=== PATIENT | female | born 1960 | race African-American/Black ===

== ENCOUNTER 2016-10-16 22:25 | Observation (INO) | payer OTHER ==
[2016-10-16] MEDS ORDERED: NS 0.9% 1000 ML* 1,000 ML IV ONE (23:40)
[2016-10-17] LABS: Hematocrit 35 % (35-47); Mean Corpuscular HGB Conc 32 g/dl (31-36); Mean Corpuscular Hemoglobin 24 pg (27-31); Mean Corpuscular Volume 76 fL (80-97); Mean Platelet Volume 10 um3 (7.4-10.4); Red Blood Count 4.54 10^6/ul (4.0-5.4); Red Cell Distribution Width 17 % (10.5-15); White Blood Count 5.6 10^3/ul (3.5-10.8)
[2016-10-17 00:12] LABS: Albumin 3.8 g/dL (3.2-5.2); BUN/Creatinine Ratio 17.8 (8-20); Calcium 9.1 mg/dL (8.6-10.3); EGFR African American 82.7 (>60); EGFR Non-African American 64.3 (>60); Globulin 3.7 g/dL (2-4); Potassium 3.8 mmol/L (3.5-5.0); Total Bilirubin 0.3 mg/dL (0.2-1.0); Total Protein 7.5 g/dL (6.4-8.9)
[2016-10-17 00:15] LABS: Troponin I 0.01 ng/mL (<0.04)
[2016-10-17] MEDS ORDERED: Aspirin TAB* 325 MG PO ONE (01:16)
[2016-10-17] MEDS ORDERED: Docusate CAP* 100 MG PO PRN (01:17)
[2016-10-17] MEDS ORDERED: Ondansetron INJ* 2 MG/ML VIAL IV PRN (01:17)
[2016-10-17] MEDS ORDERED: Al Hydrox/Mg Hydrox/Simet LIQ* 30 ML UDC PO PRN (01:17)
[2016-10-17] MEDS ORDERED: Senna TAB PO PRN (01:17)
[2016-10-17] MEDS ORDERED: Acetaminophen TAB* 325 MG PO PRN (01:17)
[2016-10-17] MEDS ORDERED: Dextrose 50% Syringe 50 ML* 25 GM/50 ML SYRINGE IV PUSH PRN (01:19)
[2016-10-17] MEDS ORDERED: Iodixanol* (CONTRAST) 320 MG/ML 100 ML SDV IV ONE (01:23)
--- NOTE | 2016-10-17 01:25 | ED ---
Miguel Cisneros Aidan, scribed for Mariama Fajardo MD on 10/17/16 at 0000 . Neurological HPI - HPI Summary HPI Summary: 56 y/o female presents to the ED with a complaint of acute, constant, moderate difficulty putting thoughts together and difficulty focusing. Symptoms began today and are still present. Though her NIH scale was fine everywhere else, she was unable to recall the current month (she is usually able to do so). Hx of HTN and diabetes, however, her sugars were normal today. Associated symptoms include having a cold and feeling weak for the past several days. She denies any CORTES, SOB, fever, vomiting, dysuria, slurred speech, or any recent falls. No Hx of NH or CVA, however, she has a FHx of CVA. - History of Current Complaint Chief Complaint: EDAltMentalStatus Stated Complaint: AMS Time Seen by Provider: 10/16/16 22:37 Hx Obtained From: Patient Hx Last Menstrual Period: unknown Onset/Duration: Sudden Onset, Started hours ago, Still Present Timing: Constant Onset Severity: Moderate Current Severity: Moderate Number of Seizures: 0 Neurological Deficit Location: Generalized - inability to put thoughts together Pain Intensity: 0 Pain Scale Used: 0-10 Numeric Character: Other: - inability to put thoughts together Syncope Timing: no syncope Episode Lasting: Hours - Pt is still symptomatic Number of Episodes: 0 - no reported syncope or seizure Frequency: Episodes x___ - constant inability to put thoughts together, Episodes Lasting ____ (in Mins/Days/Weeks/Years) - hours Aggravating: Unknown Alleviating: Unknown Associated Signs and Symptoms: Positive: Weakness. Negative: Negative - difficulty focusing, Pt had a cold - Allergy/Home Medications Allergies/Adverse Reactions: Allergies Allergy/AdvReac Type Severity Reaction Status Date / Time No Known Allergies Allergy Verified 02/23/13 14:17 PMH/Surg Hx/FS Hx/Imm Hx Endocrine/Hematology History: Reports: Hx Diabetes Cardiovascular History: Reports: Hx Hypertension Denies: Hx Pacemaker/ICD Sensory History: Reports: Hx Contacts or Glasses Denies: Hx Hearing Aid Opthamlomology History: Reports: Hx Contacts or Glasses Psychiatric History: Denies: Hx Panic Disorder - Cancer History Hx Chemotherapy: No Hx Radiation Therapy: No - Surgical History Surgery Procedure, Year, and Place: bi-lateral rentina lazer surgery 2000, patrizia- ectomy( uterine repaired 2002) Infectious Disease History: No Infectious Disease History: Denies: Traveled Outside the [place] in Last 30 Days - Family History Known Family History: Positive: Other - CVA - Social History Occupation: Employed Full-time Lives: Alone Alcohol Use: None Substance Use Type: Reports: None Smoking Status (MU): Never Smoked Tobacco Review of Systems Constitutional: Other - Pt had a cold Negative: Fever, Chills, Fatigue, Skin Diaphoresis Eyes: Negative ENT: Negative Cardiovascular: Negative Respiratory: Negative Gastrointestinal: Negative Genitourinary: Negative Musculoskeletal: Negative Skin: Negative Neurological: Other - difficulty focusing and difficulty putting thoughts together Positive: Weakness Psychological: Normal All Other Systems Reviewed And Are Negative: Yes Physical Exam - Summary Physical Exam Summary: General: Well appearing, no pain distress Skin: Warm, Skin Color Reflects Adequate Perfusion, Dry Eyes: EOMI, KATARZYNA ENT: Pharynx normal, TMs normal Neck: Supple, nontender Respiratory: CTA, breath sounds present, no rhonchi, no wheezes, no rales Cardiovascular: RRR, no murmur, no rub, no gallop Abdomen: Soft, nontender, Non-distended, no guarding, no rebound Bowel: Present Musculoskeletal: NONA, No edema Neuro: Sensory/motor intact, A&Ox3, CN intact 2-12 Psych: Affect/mood appropriate Triage Information Reviewed: Yes Vital Signs On Initial Exam: Initial Vitals Temp Pulse Resp BP Pulse Ox 98.5 F 71 24 142/75 95 10/16/16 22:31 10/16/16 22:31 10/16/16 22:31 10/16/16 22:31 10/16/16 22:31 Vital Signs Reviewed: Yes - [place] Coma Scale Coma Scale Total: 15 Diagnostics - Vital Signs Vital Signs Temp Pulse Resp BP Pulse Ox 10/16/16 23:30 65 21 127/74 95 10/16/16 23:11 64 16 122/70 10/16/16 23:00 64 20 122/70 94 10/16/16 22:45 98.3 F 66 16 123/68 95 10/16/16 22:44 70 22 123/68 95 10/16/16 22:37 15 10/16/16 22:36 129/70 10/16/16 22:31 98.5 F 71 24 142/75 95 - Laboratory Lab Results: Lab Results 10/16/16 10/16/16 10/16/16 Range/Units 22:40 22:40 22:40 WBC 5.6 (3.5-10.8) 10^3/ul RBC 4.54 (4.0-5.4) 10^6/ul Hgb 11.0 L (12.0-16.0) g/dl Hct 35 (35-47) % MCV 76 L (80-97) fL MCH 24 L (27-31) pg MCHC 32 (31-36) g/dl RDW 17 H (10.5-15) % Plt Count 189 (150-450) 10^3/ul MPV 10 (7.4-10.4) um3 Neut % (Auto) 52.0 (38-83) % Lymph % (Auto) 38.9 (25-47) % Hughes % (Auto) 7.3 (1-9) % Eos % (Auto) 1.5 (0-6) % Baso % (Auto) 0.3 (0-2) % Absolute Neuts (auto) 2.9 (1.5-7.7) 10^3/ul Absolute Lymphs (auto) 2.2 (1.0-4.8) 10^3/ul Absolute Monos (auto) 0.4 (0-0.8) 10^3/ul Absolute Eos (auto) 0.1 (0-0.6) 10^3/ul Absolute Basos (auto) 0 (0-0.2) 10^3/ul Absolute Nucleated RBC 0.03 10^3/ul Nucleated RBC % 0.5 INR (Anticoag Therapy) 1.00 (0.89-1.11) Sodium 138 (133-145) mmol/L Potassium 3.8 (3.5-5.0) mmol/L Chloride 101 (101-111) mmol/L Carbon Dioxide 30 (22-32) mmol/L Anion Gap 7 (2-11) mmol/L BUN 16 (6-24) mg/dL Creatinine 0.90 (0.51-0.95) mg/dL Est GFR ( Amer) 82.7 (>60) Est GFR (Non-Af Amer) 64.3 (>60) BUN/Creatinine Ratio 17.8 (8-20) Glucose 102 H (70-100) mg/dL Lactic Acid (0.5-2.0) mmol/L Calcium 9.1 (8.6-10.3) mg/dL Total Bilirubin 0.30 (0.2-1.0) mg/dL AST 19 (13-39) U/L ALT 14 (7-52) U/L Alkaline Phosphatase 80 (34-104) U/L Troponin I 0.01 (<0.04) ng/mL Total Protein 7.5 (6.4-8.9) g/dL Albumin 3.8 (3.2-5.2) g/dL Globulin 3.7 (2-4) g/dL Albumin/Globulin Ratio 1.0 (1-3) // Range/Units 22:40 WBC (3.5-10.8) 10^3/ul RBC (4.0-5.4) 10^6/ul Hgb (12.0-16.0) g/dl Hct (35-47) % MCV (80-97) fL MCH (27-31) pg MCHC (31-36) g/dl RDW (10.5-15) % Plt Count (150-450) 10^3/ul MPV (7.4-10.4) um3 Neut % (Auto) (38-83) % Lymph % (Auto) (25-47) % Hughes % (Auto) (1-9) % Eos % (Auto) (0-6) % Baso % (Auto) (0-2) % Absolute Neuts (auto) (1.5-7.7) 10^3/ul Absolute Lymphs (auto) (1.0-4.8) 10^3/ul Absolute Monos (auto) (0-0.8) 10^3/ul Absolute Eos (auto) (0-0.6) 10^3/ul Absolute Basos (auto) (0-0.2) 10^3/ul Absolute Nucleated RBC 10^3/ul Nucleated RBC % INR (Anticoag Therapy) (0.89-1.11) Sodium (133-145) mmol/L Potassium (3.5-5.0) mmol/L Chloride (101-111) mmol/L Carbon Dioxide (22-32) mmol/L Anion Gap (2-11) mmol/L BUN (6-24) mg/dL Creatinine (0.51-0.95) mg/dL Est GFR ( Amer) (>60) Est GFR (Non-Af Amer) (>60) BUN/Creatinine Ratio (8-20) Glucose (70-100) mg/dL Lactic Acid 1.0 (0.5-2.0) mmol/L Calcium (8.6-10.3) mg/dL Total Bilirubin (0.2-1.0) mg/dL AST (13-39) U/L ALT (7-52) U/L Alkaline Phosphatase (34-104) U/L Troponin I (<0.04) ng/mL Total Protein (6.4-8.9) g/dL Albumin (3.2-5.2) g/dL Globulin (2-4) g/dL Albumin/Globulin Ratio (1-3) Result Diagrams: 10/16/16 22:40 10/16/16 22:40 Lab Statement: Any lab studies that have been ordered have been reviewed, and results considered in the medical decision making process. - CT BRAIN CT CT Interpretation: No Acute Changes - IMPRESSION: No acute brain parenchymal abnormality. No hemorrhage, mass, or acute territorial infarct. Minimal chronic small vessel ischemic changes. No skull fracture. Mucoperiosteal thickening paranasal sinuses. Fluid right maxillary and right sphenoid sinuses. Visualized mastoid air cells. CT Interpretation Completed By: Radiologist - personal financial counselor - EKG EKG 0008 Cardiac Rate: NL - 67 BPM EKG Rhythm: Sinus Rhythm EKG Interpretation: NORMAL SINUS RHYTHM NIH Scale - NIH Scale Level of Consciousness: Alert/Keenly Responsive Ask Patient the Month and His/Her Age: [age] Correct/Not Aphasic Ask Pt to Open/Close Eyes and [place] Farmer/Release Non-Paretic Hand: Both Correctly Best Gaze (Only Horizontal Eye Movement): Normal Visual Field Testing: No Visual Loss Facial Paresis-Pt to Smile & Close Eyes or Grimace Symmetry: Normal/Symmetrical Motor Function - Right Arm: No Drift-Holds 10 Seconds Motor Function - Left Arm: No Drift-Holds 10 Seconds Motor Function - Right Leg: No Drift-Holds 10 Seconds Motor Function - Left Leg: No Drift-Holds 10 Seconds Limb Ataxia-Must be out of Proportion to Weakness Present: Absent Sensory (Use Pinprick to Test Arms/Legs/Trunk/Face): Normal Best Language (Describe Picture, Name Items): No Aphasia Extinction and Inattention: No Abnormality Course/Dx - Course Course Of Treatment: case discussed with Dr. Blue given that pt seems to have a component of word finding issues with her complaint and her symptoms may be stroke related - Diagnoses Provider Diagnoses: Confusion Discharge - Discharge Plan Condition: Stable Disposition: ADMITTED TO [facility] The documentation as recorded by the Miguel mccloud Aidan accurately reflects the service I personally performed and the decisions made by me, Mariama Fajardo MD.
--- NOTE | 2016-10-17 03:14 | HP ---
HISTORY AND PHYSICAL: DATE OF ADMISSION: 10/17/16 TIME OF EVALUATION: 01:30 PRIMARY CARE PHYSICIAN: Bella Anders MD CHIEF COMPLAINT: Difficulty with focusing and word finding. HISTORY OF PRESENT ILLNESS: This is a 56-year-old female with a past medical history of diabetes and obstructive sleep apnea, who presents to the emergency room after having difficulty all day with word finding. She states she has been having difficulty focusing and stumbling over her words. She felt confused earlier. She still feels off. She denies any chest pain. No shortness of breath. She has had some left-sided headache. No numbness or tingling. No weakness. No falls. This has never happened to her before. When asked more about her history, she has a hard time articulating information. In the emergency room, the patient had labs, imaging, and was referred to the hospitalist service for further evaluation. PAST MEDICAL HISTORY: 1. Obstructive sleep apnea, on CPAP. 2. Diabetes. 3. Hypertension. Unclear if she has additional medical problems. The remaining medications unknown. The patient was not able to articulate them to me. MEDICATIONS: The patient was unable to articulate her medication list to me. ALLERGIES: No known drug allergies. SOCIAL HISTORY: The patient lives alone. Her healthcare proxy is her sister, Lu Lopez. No history of smoking. Occasional alcohol use. No illicit drug use. She does work, but again she was not able to articulate where she works. FAMILY HISTORY: Her mother is alive, but has had a history of a stroke. Her father is alive and healthy. REVIEW OF SYSTEMS: As mentioned in the HPI. PHYSICAL EXAMINATION GENERAL: No acute distress, resting comfortably. VITAL SIGNS: Temp 98.3, pulse rate is 69, respiratory rate is 16, oxygen saturation 97% on room air, blood pressure 121/71. HEENT: Head normocephalic. Pupils equal and reactive. Anicteric. Oropharynx : Mucous membranes are moist. No erythema or exudate. NECK: Supple. No lymphadenopathy. RESPIRATORY: Clear to auscultation. No wheezes, rhonchi or rales. CARDIAC: Regular rate and rhythm, systolic murmur heard most prominently at the right sternal base. ABDOMEN: Soft, nontender, nondistended. EXTREMITIES: No clubbing, cyanosis or edema. +2 DPs. NEUROLOGIC: Alert and oriented x3. Cranial nerves II through XII intact. Negative pronator drift. Upper and lower extremity muscle strength equal and symmetric noted. The patient with word finding difficulty, unable to articulate information to me. LABORATORY DATA: White count 5.6, hemoglobin 11, hematocrit 35, platelets 189. INR is 1. Sodium 138, potassium 3.8, chloride 101, bicarb 30, BUN 16, creatinine 0.9. Troponin 0.01. RADIOGRAPHIC DATA: EKG: Shows normal sinus rhythm. Head CT shows no acute brain parenchymal abnormality. No hemorrhage, mass or acute territorial infarct. Minimal chronic small vessel ischemic changes. No skull fracture, mesial or periosteal thickening, paranasal sinus fluid, right maxillary and right sphenoid sinus visualized. Mastoid air cells clear. ASSESSMENT: This is a 56-year-old female with past medical history of diabetes , hypertension, obstructive sleep apnea, who presents to the emergency room with confusion and expressive aphasia. 1. Confusion and expressive aphasia. Assessment: The patient is still persisting with symptoms, atypical for an acute cerebrovascular accident versus transient ischemic attack, . Plan: We will admit her to telemetry for observation. We will order a head CTA of the head and neck and contact Neurology in the morning. We will give her a full dose aspirin at this time and continue baby aspirin. In the morning , we will check a lipid panel, hemoglobin A1c. 2. Chronic medical problems: Need to call the pharmacy to get her medication list. In the interim, I will place her on lispro sliding scale. 3. FEN: Place her on a diabetic diet. 4. DVT prophylaxis: The patient scores high risk. Heparin subcu t.i.d. 5. Code status: Full code. PATIENT TIME: Greater than 65 minutes was spent doing the history and physical , more than half the time was spent in direct patient contact. [id number]/CPS #: [id number] ADAMA
[2016-10-17] MEDS: Heparin VIAL(*) 5000 UNITS/ML VIAL (FIVE THOUSAND) SUBCUT SCH ×3 (06:27→21:38)
--- NOTE | 2016-10-17 07:53 | PN ---
Subjective Date of Service: 10/17/16 Interval History: Ms. Lopez feels that she is able to express herself better but she is still having difficulty finding words. She denies other complaint including weakness , loss of sensation or vision changes. She further denies chest pain, SOB, nausea, or abdominal pain. Objective Active Medications: Acetaminophen (Tylenol Tab*) 650 mg PO Q4H PRN Al Hydrox/Mg Hydrox/Simethicone (Maalox Plus*) 30 ml PO Q6H PRN Aspirin (Aspirin Ec Low Dose*) 81 mg PO DAILY LIAN Dextrose (D50w Syringe 50 Ml*) 12.5 gm IV PUSH .FOR FS < 60 - SS PRN Docusate Sodium (Colace Cap*) 100 mg PO BID PRN Heparin Sodium (Porcine) (Heparin Vial(*)) 5,000 units SUBCUT Q8HR LIAN Insulin Human Lispro (Humalog*) 0 units SUBCUT AC LIAN Ondansetron HCl (Zofran Inj*) 4 mg IV Q4H PRN Senna (Senokot Tab*) 1 tab PO BID PRN Vital Signs 10/17/16 10/17/16 02:30 02:34 Temperature 97.8 F Pulse Rate 65 62 Respiratory 18 16 Rate Blood Pressure 119/72 127/66 (mmHg) O2 Sat by Pulse 96 95 Oximetry Oxygen Devices in Use Now: None Appearance: Female sitting up in bed in NAD Eyes: No Scleral Icterus Ears/Nose/Mouth/Throat: Mucous Membranes Moist Neck: Trachea Midline Respiratory: Symmetrical Chest Expansion and Respiratory Effort, Clear to Auscultation Cardiovascular: NL Sounds; No Murmurs; No JVD, No Edema Abdominal: NL Sounds; No Tenderness; No Distention Extremities: No Edema Skin: No Rash or Ulcers Neurological: Alert and Oriented x 3, NL Muscle Strength and Tone, - - Difficulty finding words, speech fluent Nutrition: Taking PO's Result Diagrams: 10/16/16 22:40 10/16/16 22:40 Additional Lab and Data: Lab Results 10/16/16 10/16/16 10/16/16 Range/Units 22:40 22:40 22:40 WBC 5.6 (3.5-10.8) 10^3/ul RBC 4.54 (4.0-5.4) 10^6/ul Hgb 11.0 L (12.0-16.0) g/dl Hct 35 (35-47) % MCV 76 L (80-97) fL MCH 24 L (27-31) pg MCHC 32 (31-36) g/dl RDW 17 H (10.5-15) % Plt Count 189 (150-450) 10^3/ul MPV 10 (7.4-10.4) um3 Neut % (Auto) 52.0 (38-83) % Lymph % (Auto) 38.9 (25-47) % [place] % (Auto) 7.3 (1-9) % Eos % (Auto) 1.5 (0-6) % Baso % (Auto) 0.3 (0-2) % Absolute Neuts (auto) 2.9 (1.5-7.7) 10^3/ul Absolute Lymphs (auto) 2.2 (1.0-4.8) 10^3/ul Absolute Monos (auto) 0.4 (0-0.8) 10^3/ul Absolute Eos (auto) 0.1 (0-0.6) 10^3/ul Absolute Basos (auto) 0 (0-0.2) 10^3/ul Absolute Nucleated RBC 0.03 10^3/ul Nucleated RBC % 0.5 INR (Anticoag Therapy) 1.00 (0.89-1.11) Sodium 138 (133-145) mmol/L Potassium 3.8 (3.5-5.0) mmol/L Chloride 101 (101-111) mmol/L Carbon Dioxide 30 (22-32) mmol/L Anion Gap 7 (2-11) mmol/L BUN 16 (6-24) mg/dL Creatinine 0.90 (0.51-0.95) mg/dL Est GFR ( Amer) 82.7 (>60) Est GFR (Non-Af Amer) 64.3 (>60) BUN/Creatinine Ratio 17.8 (8-20) Glucose 102 H (70-100) mg/dL Lactic Acid (0.5-2.0) mmol/L Calcium 9.1 (8.6-10.3) mg/dL Total Bilirubin 0.30 (0.2-1.0) mg/dL AST 19 (13-39) U/L ALT 14 (7-52) U/L Alkaline Phosphatase 80 (34-104) U/L Troponin I 0.01 (<0.04) ng/mL Total Protein 7.5 (6.4-8.9) g/dL Albumin 3.8 (3.2-5.2) g/dL Globulin 3.7 (2-4) g/dL Albumin/Globulin Ratio 1.0 (1-3) // Range/Units 22:40 WBC (3.5-10.8) 10^3/ul RBC (4.0-5.4) 10^6/ul Hgb (12.0-16.0) g/dl Hct (35-47) % MCV (80-97) fL MCH (27-31) pg MCHC (31-36) g/dl RDW (10.5-15) % Plt Count (150-450) 10^3/ul MPV (7.4-10.4) um3 Neut % (Auto) (38-83) % Lymph % (Auto) (25-47) % [place] % (Auto) (1-9) % Eos % (Auto) (0-6) % Baso % (Auto) (0-2) % Absolute Neuts (auto) (1.5-7.7) 10^3/ul Absolute Lymphs (auto) (1.0-4.8) 10^3/ul Absolute Monos (auto) (0-0.8) 10^3/ul Absolute Eos (auto) (0-0.6) 10^3/ul Absolute Basos (auto) (0-0.2) 10^3/ul Absolute Nucleated RBC 10^3/ul Nucleated RBC % INR (Anticoag Therapy) (0.89-1.11) Sodium (133-145) mmol/L Potassium (3.5-5.0) mmol/L Chloride (101-111) mmol/L Carbon Dioxide (22-32) mmol/L Anion Gap (2-11) mmol/L BUN (6-24) mg/dL Creatinine (0.51-0.95) mg/dL Est GFR ( Amer) (>60) Est GFR (Non-Af Amer) (>60) BUN/Creatinine Ratio (8-20) Glucose (70-100) mg/dL Lactic Acid 1.0 (0.5-2.0) mmol/L Calcium (8.6-10.3) mg/dL Total Bilirubin (0.2-1.0) mg/dL AST (13-39) U/L ALT (7-52) U/L Alkaline Phosphatase (34-104) U/L Troponin I (<0.04) ng/mL Total Protein (6.4-8.9) g/dL Albumin (3.2-5.2) g/dL Globulin (2-4) g/dL Albumin/Globulin Ratio (1-3) Assess/Plan/Problems-Billing Assessment: Ms. Lopez is a 56 yo female with a PMH of DM, HTN and LELAND who was admitted on 10/17/16 with expressive aphasia and difficulty focusing. - Patient Problems (1) Expressive aphasia Comment: Improved. Brain CT negative and Head/neck CTA negative. MRI brain and echo pending. Appreciate neuro consult, Dr. Ortiz had requested that radiology team come in for MRI brain today as she is concerned for CVA vs a more focal encephalopathy. However patient's weight precludes MRI imagin studies. Plan for EEG and repeat CT brain tomorrow. Continue aspirin and high dose statin. (2) Diabetes Comment: BGs well controlled. Hold metformin and continue lispro SSI coverage with meals. HgbA1c 5.6. (3) Hypertension Comment: Allow for permissive hypertension. Hold dyazide. (4) LELAND (obstructive sleep apnea) (5) DVT prophylaxis Comment: Heparin SQ. (6) Full code status Status and Disposition: OBV. Anticipate discharge to home when medically stable.
[2016-10-17] MEDS: Insulin LISPRO* 1 UNITS UNIT SUBCUT SCH ×3 (08:53→18:41)
[2016-10-17] MEDS: Aspirin EC Low Dose* 81 MG TAB.EC PO SCH (08:53)
[2016-10-17] MEDS ORDERED: Atorvastatin* 80 MG TAB PO ONE (09:43)
--- NOTE | 2016-10-17 09:57 | RAD ---
INDICATION: Word finding difficulty. COMPARISON: None. TECHNIQUE: Contiguous axial sections of the brain were obtained from the skull base to the vertex without contrast. FINDINGS: The ventricles, cisterns and sulci are within normal limits. There is a mild degree of subcortical and periventricular white matter hypoattenuation most severely affecting the bilateral posterior white matter tracts of the parietal lobes (for example image 21 of 32), most consistent with mild microvascular disease. The fontanez-white matter differentiation is adequately maintained and there is no sulcal effacement. No significant focal abnormality or mass effect is present. There is no evidence for intracranial hemorrhage. No significant focal osseous abnormality is present. There is an air-fluid level in the right maxillary sinus as well as the dependent fluid in the right sphenoid sinus. There is mild to moderate mucosal thickening of the bilateral ethmoid air cells. The mastoid air cells are well-aerated. IMPRESSION: 1. Evidence of mild microvascular disease. 2. Paranasal sinus mucosal disease as described above.
[2016-10-17] MEDS ORDERED: diPHENhydraMINE PO* 25 MG PO PRN (10:22)
--- NOTE | 2016-10-17 15:03 | RAD ---
CPT II: CPT II Codes: 3100F INDICATION: Ectasia COMPARISON: None TECHNIQUE: A CT angiogram of the head and neck was performed with 80 cc of Visipaque 320. Contiguous axial sections were obtained from the thoracic inlet through the [place]. Images were reconstructed in the sagittal, coronal planes and in a 3-D volume rendered format. The distal cervical internal carotid artery diameter is used as the denominater for stenosis measurement. CTA NECK: The common and internal carotid arteries are patent without hemodynamically significant stenosis. Right: The short axis diameter of the right carotid bulb measures 8 mm. Immediately above the bulb the internal carotid artery also measures 8 mm. This yields 0% degree stenosis. Left: The short axis diameter of the left carotid bulb measures 9 mm. Immediately above the bulb the internal carotid artery also measures 9 mm. This yields 0% degree stenosis. The vertebral arteries are patent without gross abnormality. CTA of the brain: The internal carotid, anterior and middle cerebral arteries appear are patent without high grade stenosis or occlusion. The vertebral, basilar and posterior cerebral arteries appear patent without high grade stenosis or occlusion. The [place] is complete with bilateral posterior communicating arteries identified. No focal luminal filling defect, aneurysm or vascular malformation is seen. There is dependent fluid in the right maxillary sinus and right sphenoid sinus as well as moderate mucosal thickening of the bilateral ethmoid air cells. IMPRESSION: Normal CT angiography of the head and neck.
--- NOTE | 2016-10-17 21:11 | CONS ---
NEUROLOGY CONSULTATION REPORT: DATE OF CONSULT: 10/17/16 LOCATION: The patient is on [address] REQUESTING PHYSICIAN: Dr. Ana Blue. REASON FOR CONSULT: Aphasia. HISTORY OF PRESENT ILLNESS: Ana Lopez is a 56-year-old right-handed woman with a history of well-controlled diabetes; obstructive sleep apnea, on CPAP; morbid obesity; hypertension, who presented to the hospital yesterday evening with aphasia. She indicates that she has had a cold for approximately a week and possibly some subjective fever as well. Yesterday sometime in the afternoon , she is unsure exactly when, she began to have difficulty with what she calls focusing and "I couldn't put it altogether." It seems that she had difficulty expressing herself and was stumbling over her words. She also says that she felt confused, but denies any lapses in memory or awareness during this period of time. When asked how she got to the hospital, she says that her neighbor came to help her, but the chart indicates that her sister had called her from [facility] and recognized that something was wrong and called [facility] to come and evaluate her. 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 She denies any vision changes, dysarthria, extremity weakness or numbness, vertigo, swallowing difficulties with this episode. She has never had any symptoms similar to this in the past. I called her sister after I evaluated the patient and confirmed much of the above information. The patient has had a cold which was primarily a cough and congestion for approximately a week and prior to that, she had been at a conference where she was very busy, and had early mornings and late nights. Her sister is unaware whether she has had any fever with this cold and whether she had sought any medical attention for it. She confirmed that the patient has a history of depression, which is as far as she is aware is well controlled. , and she is unaware of any history of diabetes in the patient. Their mother had a stroke at the age of 58, and is diabetic and hypertensive. PAST MEDICAL HISTORY: Obtained primarily from the chart and through yes or no questions with the patient, because when I asked her if she had any medical problems, she responded, "I was having difficulty focusing and couldn't put it altogether." 1. Obstructive sleep apnea, on CPAP. 2. Diabetes. 3. Hypertension. 4. Morbid obesity. 5. Depression. HOME MEDICATIONS: 1. Valsartan/HCTZ 160/25 one tablet daily. 2. Sertraline 100 mg daily. 3. Atrovent 2 sprays twice daily as needed. 4. Fluticasone nasal spray as needed. 5. Benadryl 25 mg at bedtime as needed. 6. Bupropion 100 mg daily. 7. Metformin 500 mg daily. FAMILY HISTORY: As indicated in the HPI. SOCIAL HISTORY: She is a professor at [employer]. She lives alone. Denies tobacco, alcohol, or drug use. REVIEW OF SYSTEMS: She denies any recent weight loss or appetite changes. She denies any skin rashes. She has joint pain, which she says is due to arthritis and is unchanged. PHYSICAL EXAM: Vital Signs: Temperature 97.9, and she has been afebrile throughout her stay here. Blood pressure has been 119/71, maximum blood pressure on admission was 142/75; heart rate been in the 50s, in sinus rhythm; oxygen saturation is 98% on room air. On general examination, she is in no acute distress. She is pleasant and cooperative. She is morbidly obese. Her heart is in a regular rate and rhythm, but bradycardic and with no obvious murmurs. The lungs are clear anteriorly bilaterally. On neurologic examination , her speech is clear. She has non-fluent speech and a significant anomia and she seems to perseverate on not being able to focus yesterday and not been able to put her thoughts together. When presented with the stroke card, she was unable to describe the [employer] picture besides stating that she saw [place] jar. She was unable to count the number of people in the picture, but did not appear to have any visual field defect. She was able to identify objects on the stroke cards through multiple choice or when asked to point, but was unable to produce the words herself. She was somewhat able to read the stroke cards but made some errors and skipped over many words, in particular articles. She was able to repeat appropriately without dysarthria. She was able to follow all the commands of the examination. On cranial nerve testing, pupils are equal, round, and reactive from 2 to 1 mm bilaterally. Funduscopic exam was not performed. Her versions are full without nystagmus. On visual field testing, there was no consistent visual field defect noted. In particular, she seemed to extinguish to double simultaneous stimulation at one point in the left upper quadrant but then in the right upper quadrant, it was not consistent. Her face is symmetric with full strength. Facial sensation was intact to light touch bilaterally. Hearing is intact to voice. Her palate elevates symmetrically and the tongue is midline. On motor examination, her tone is normal and she has no pronator drift. Her strength is essentially full with maybe just a slight hint of give in the right deltoid. Her legs were full strength and symmetric. Sensory testing was similarly difficult as visual mccray. She initially seems to extinguish in the right lower extremity when touched in the arm and leg simultaneously. However, when touched in the left lower extremity, she indicated that she was being touched in her left arm and continued to indicate so even when she was given choices. Reflexes were 2+ in the biceps, 3+ at the brachioradialis, with flexion of the fingers, 2+ at the knees and ankles with a possibly upgoing toe on the right and splaying of the toes. There was no ataxia on [id number]-rz-smby or zhtq-al-hwwg testing. She was not ambulated. DIAGNOSTIC STUDIES/LAB DATA: Laboratory data reviewed includes a CBC, which was notable for a slightly low hemoglobin of 11 and low MCV of 76, low MCH of 24 , and RDW of 17. White count was normal at 5.6 with a normal differential. Her INR was normal at 1. Her CMP showed a glucose of 102 on admission, and fingerstick glucose was 110 at 744 this morning. Hemoglobin A1c is 5.6. Her lipid profile shows triglycerides of 64, total cholesterol of 138, LDL of 84, and HDL of 41. Liver functions are normal. Her noncontrast brain CT was obtained and personally reviewed and potentially showed some increased hypodensities in the posterior white matter. Her CT angiogram of the head and neck has not been formally read as of yet, but was personally reviewed and I questioned whether there could be a small occlusion in a branch of the left M2, but it was difficult to verify this on other planes of imaging. IMPRESSION AND PLAN: Ana Lopez is a 56-year-old woman with vascular risk factors of obesity, sleep apnea, hypertension, and possible diabetes, who presented with aphasia. I am concerned that she may have had a partial left middle cerebral artery stroke, but she has other findings on her exam which are more difficult to put together including the inconsistent deficits in her visual mccray as well as some inconsistent responses in her sensory exam. Also , given the history of upper respiratory infection for the past week, I would like to make sure that we are not dealing with something else such as encephalitis and so I have asked for MRI to come in today. PRES is a possibility as well. She will have MRI of the brain without contrast. At this time, she has been placed on an aspirin 81 mg daily as well as Lipitor. Her home medications have been continued. Further workup will be pending the results of her MRI scan. [id number] #: [id number] MTDD
[2016-10-18 04:35] LABS: Urine Bacteria Absent (Absent); Urine Bilirubin Negative (Negative); Urine Glucose Negative (Negative); Urine Nitrite Negative (Negative)
[2016-10-18] MEDS: Heparin VIAL(*) 5000 UNITS/ML VIAL (FIVE THOUSAND) SUBCUT SCH ×3 (06:20→20:53)
[2016-10-18] MEDS: Insulin LISPRO* 1 UNITS UNIT SUBCUT SCH ×3 (09:34→18:11)
[2016-10-18] MEDS: Sertraline* 100 MG TAB PO SCH (09:35)
[2016-10-18] MEDS: Aspirin EC Low Dose* 81 MG TAB.EC PO SCH (09:35)
[2016-10-18] MEDS: buPROPion SR TAB.SR* 100 MG PO SCH (09:36)
--- NOTE | 2016-10-18 11:09 | ECHO ---
Patient: WALESKA SIMON [facility] Rec#: [id number] : 1960 Date: 10/18/2016 Age: 56y Height: 165.1 cm / 65.0 in Weight: 113.4 kg / 249.9 lbs Sex: F BSA: 2.2 Room#: [facility] Admit Date#: 10/17/2016 Type: Inpatient Referring: Ana Blue Reading: Miky Medina MD Sports Teacher: Fatuma Moreira RN RDCS CC: Bella Anders MD Transthoracic Echocardiogram Indication: CVA BP: 118/77 HR: 53 Rhythm: Bradycardia Findings History: DM, HTN, LELAND, obesity Technical Comments: The study quality is fair. The study is technically limited due to patient body habitus. Completed at 1020. Left Ventricle: The left ventricular chamber size is normal. There is increased basal septal hypertrophy noted without evidence of an increased gradient across the left ventricular outflow tract. Global left ventricular wall motion and contractility are within normal limits. There is normal left ventricular systolic function. The estimated ejection fraction is 55-60%. Normal left ventricular diastolic filling is observed. Left Atrium: The left atrial chamber size is normal. Right Ventricle: The right ventricular chamber size and systolic function are within normal limits. Right Atrium: The right atrial cavity size is normal. Aortic Valve: The aortic valve is trileaflet. The aortic valve leaflets are mildly thickened. There is evidence of aortic sclerosis without stenosis. There is mild aortic regurgitation. Mitral Valve: The mitral valve leaflets are mildly thickened. There is mild to moderate mitral regurgitation. The mitral regurgitant jet is eccentric. There is no evidence of mitral stenosis. Tricuspid Valve: The tricuspid valve leaflets are normal. There is trace to mild tricuspid regurgitation. There is evidence of borderline pulmonary hypertension. Pulmonic Valve: The pulmonic valve appears normal. There is moderate pulmonic regurgitation. There is no pulmonic stenosis. Pericardium: There is no significant pericardial effusion. A pericardial fat pad is visualized. Aorta: There is moderate dilatation of the ascending aorta.4.5 cm There is no dilatation of the aortic arch. The aortic root is normal in size. Pulmonary Artery: The main pulmonary artery appears normal. Venous: The inferior vena cava appears normal in size. There is less than 50% respiratory change in the inferior vena cava dimension. Conclusions Global left ventricular wall motion and contractility are within normal limits. There is normal left ventricular systolic function. The estimated ejection fraction is 55-60%. There is evidence of aortic sclerosis without stenosis. There is mild aortic regurgitation. There is mild to moderate mitral regurgitation. The mitral regurgitant jet is eccentric. There is trace to mild tricuspid regurgitation. There is evidence of borderline pulmonary hypertension. There is no significant pericardial effusion. There is moderate dilatation of the ascending aorta.4.5 cm Measurements Name Value Normal Range RVIDd (AP) 2D 2.8 cm (0.9 - 2.6) RVDdMajor (2D) 3.6 cm (2.2 - 4.4) RAd ISD 4CH 4.3 cm (3.4 - 4.9) RA (A4C)W 4.3 cm (2.9 - 4.6) IVSd (2D) 1.4 cm (0.6 - 1) LVPWd (2D) 0.7 cm (0.6 - 1) LVIDd (2D) 4.8 cm (3.6 - 5.4) LVIDs (2D) 3.4 cm - LV FS (2D) 29 % (25 - 45) Aortic Annulus 2.3 cm (1.4 - 2.6) Ao root diameter (2D) 3.5 cm (2.1 - 3.5) Ascending Ao 4 cm (2.1 - 3.4) Aortic arch 3 cm (1.8 - 3.4) LA dimension (AP) 2D 3 cm (2.3 - 3.8) LAd ISD 4CH 4.9 cm (2.9 - 5.3) LA ISD 4CH W 4.3 cm (2.5 - 4.5) Name Value Normal Range LA ESV SP 4CH (A/L) 62 ml - LA ESV SP 2CH (A/L) 59 ml - LA ESV BP (A/L) 62 ml - LA ESV BP (A/L) index 28.2 ml/m2 - LA ESV SP 4CH (MOD) 54 ml - LA ESV SP 2CH (MOD) 57 ml - Name Value Normal Range MV E-wave Vmax 1.2 m/sec - MV deceleration time 199 msec - MV A-wave Vmax 0.76 m/sec - MV E:A ratio 1.6 ratio - LV septal e' Vmax 0.08 m/sec - LV lateral e' Vmax 0.11 m/sec - LV E:e' septal ratio 15 ratio - LV E:e' lateral ratio 10.9 ratio - Name Value Normal Range AV Vmax 1.9 m/sec - AV VTI 43 cm - AV peak gradient 14 mmHg - AV mean gradient 7 mmHg - LVOT Vmax 1.1 m/sec - LVOT VTI 25.4 cm - LVOT peak gradient 5 mmHg - LVOT mean gradient 2.5 mmHg - LOKI Vmax 1.3 m/sec - Name Value Normal Range TR Vmax 2.6 m/sec - TR peak gradient 27 mmHg - RAP 8 mmHg - RVSP 35 mmHg - IVC diameter 2.1 cm - Name Value Normal Range PV Vmax 1.3 m/sec -
--- NOTE | 2016-10-18 13:28 | PN ---
Progress Note - Progress Note SOAP: Subjective: [This is a 56 yo female with PMH of DM, HTN, obesity, and LELAND admitted on 10/17 to [facility] floor for expressive aphasia. Patient states aphasia has gotten better since admission. She states the onset of her aphasia that started two days ago suddenly with unknown causation. She reports difficulty "putting words together" and some difficulty focusing. She feels like she can think clearly and can understand others but has difficulty forming words. She denies muscle weakness, decreased sensation, dizziness, headache, dysphagia. changes in vision/hearing, numbness, confusion, SOB, chest pain, palpitations, difficulty with gait/balance, or changes in memory. Patient has a scheduled MRI this afternoon and is followed by Dr. Ortiz with neurology.] Objective: [ Current medications: Acetaminophen (Tylenol Tab*) 650 mg PO Q4H PRN PRN Reason: FEVER/PAIN Al Hydrox/Mg Hydrox/Simethicone (Maalox Plus*) 30 ml PO Q6H PRN PRN Reason: INDIGESTION Aspirin (Aspirin Ec Low Dose*) 81 mg PO DAILY [facility] Last Admin: 10/18/16 09:35 Dose: 81 mg Atorvastatin Calcium (Lipitor*) 80 mg PO 1700 [facility] Bupropion HCl (Wellbutrin Sr Tab*) 100 mg PO QAM [facility] Last Admin: 10/18/16 09:36 Dose: 100 mg Dextrose (D50w Syringe 50 Ml*) 12.5 gm IV PUSH .FOR FS < 60 - SS PRN PRN Reason: FS < 60 Diphenhydramine HCl (Benadryl Po*) 25 mg PO BEDTIME PRN PRN Reason: INSOMNIA Docusate Sodium (Colace Cap*) 100 mg PO BID PRN PRN Reason: CONSTIPATION Heparin Sodium (Porcine) (Heparin Vial(*)) 5,000 units SUBCUT Q8HR [facility] Last Admin: 10/18/16 13:13 Dose: 5,000 units Insulin Human Lispro (Humalog*) 0 units SUBCUT AC [facility] PRN Reason: Protocol Last Admin: 10/18/16 13:13 Dose: 2 unit Ondansetron HCl (Zofran Inj*) 4 mg IV Q4H PRN PRN Reason: NAUSEA/VOMITING Senna (Senokot Tab*) 1 tab PO BID PRN PRN Reason: CONSTIPATION Sertraline HCl (Zoloft*) 100 mg PO DAILY [facility] Last Admin: 10/18/16 09:35 Dose: 100 mg Vital Signs Temp Pulse Resp BP Pulse Ox 98.3 F 62 16 135/88 95 10/18/16 12:24 10/18/16 12:24 10/18/16 12:24 10/18/16 12:24 10/18/16 12:24 WBC 5.6 10^3/ul (3.5-10.8) 10/16/16 22:40 RBC 4.54 10^6/ul (4.0-5.4) 10/16/16 22:40 Hgb 11.0 g/dl (12.0-16.0) L 10/16/16 22:40 Hct 35 % (35-47) 10/16/16 22:40 MCV 76 fL (80-97) L 10/16/16 22:40 MCH 24 pg (27-31) L 10/16/16 22:40 MCHC 32 g/dl (31-36) 10/16/16 22:40 RDW 17 % (10.5-15) H 10/16/16 22:40 Plt Count 189 10^3/ul (150-450) 10/16/16 22:40 MPV 10 um3 (7.4-10.4) 10/16/16 22:40 Neut % (Auto) 52.0 % (38-83) 10/16/16 22:40 Lymph % (Auto) 38.9 % (25-47) 10/16/16 22:40 Crockett % (Auto) 7.3 % (1-9) 10/16/16 22:40 Eos % (Auto) 1.5 % (0-6) 10/16/16 22:40 Baso % (Auto) 0.3 % (0-2) 10/16/16 22:40 Absolute Neuts (auto) 2.9 10^3/ul (1.5-7.7) 10/16/16 22:40 Absolute Lymphs (auto) 2.2 10^3/ul (1.0-4.8) 10/16/16 22:40 Absolute Monos (auto) 0.4 10^3/ul (0-0.8) 10/16/16 22:40 Absolute Eos (auto) 0.1 10^3/ul (0-0.6) 10/16/16 22:40 Absolute Basos (auto) 0 10^3/ul (0-0.2) 10/16/16 22:40 Absolute Nucleated RBC 0.03 10^3/ul 10/16/16 22:40 Nucleated RBC % 0.5 10/16/16 22:40 INR (Anticoag Therapy) 1.00 (0.89-1.11) 10/16/16 22:40 Sodium 138 mmol/L (133-145) 10/16/16 22:40 Potassium 3.8 mmol/L (3.5-5.0) 10/16/16 22:40 Chloride 101 mmol/L (101-111) 10/16/16 22:40 Carbon Dioxide 30 mmol/L (22-32) 10/16/16 22:40 Anion Gap 7 mmol/L (2-11) 10/16/16 22:40 BUN 16 mg/dL (6-24) 10/16/16 22:40 Creatinine 0.90 mg/dL (0.51-0.95) 10/16/16 22:40 Est GFR ( Amer) 82.7 (>60) 10/16/16 22:40 Est GFR (Non-Af Amer) 64.3 (>60) 10/16/16 22:40 BUN/Creatinine Ratio 17.8 (8-20) 10/16/16 22:40 Glucose 102 mg/dL (70-100) H 10/16/16 22:40 POC Glucose (mg/dL) 105 mg/dL (74-106) 10/18/16 11:55 Hemoglobin A1c 5.6 % (Less than 6.0) 10/16/16 22:40 Lactic Acid 1.0 mmol/L (0.5-2.0) 10/16/16 22:40 Calcium 9.1 mg/dL (8.6-10.3) 10/16/16 22:40 Total Bilirubin 0.30 mg/dL (0.2-1.0) 10/16/16 22:40 AST 19 U/L (13-39) 10/16/16 22:40 ALT 14 U/L (7-52) 10/16/16 22:40 Alkaline Phosphatase 80 U/L (34-104) 10/16/16 22:40 Troponin I 0.01 ng/mL (<0.04) 10/16/16 22:40 Total Protein 7.5 g/dL (6.4-8.9) 10/16/16 22:40 Albumin 3.8 g/dL (3.2-5.2) 10/16/16 22:40 Globulin 3.7 g/dL (2-4) 10/16/16 22:40 Albumin/Globulin Ratio 1.0 (1-3) 10/16/16 22:40 Triglycerides 64 mg/dL 10/16/16 22:40 Cholesterol 138 mg/dL 10/16/16 22:40 LDL Cholesterol 84 mg/dL 10/16/16 22:40 HDL Cholesterol 41.0 mg/dL 10/16/16 22:40 Urine Color Yellow 10/18/16 04:18 Urine Appearance Clear 10/18/16 04:18 Urine pH 5.0 (5-9) 10/18/16 04:18 Ur Specific Sandoval 1.025 (1.010-1.030) 10/18/16 04:18 Urine Protein Negative (Negative) 10/18/16 04:18 Urine Ketones Negative (Negative) 10/18/16 04:18 Urine Blood Negative (Negative) 10/18/16 04:18 Urine Nitrate Negative (Negative) 10/18/16 04:18 Urine Bilirubin Negative (Negative) 10/18/16 04:18 Urine Urobilinogen Negative (Negative) 10/18/16 04:18 Ur Leukocyte Esterase Trace (Negative) H 10/18/16 04:18 Urine WBC (Auto) Trace(0-5/hpf) (Absent) 10/18/16 04:18 Urine RBC (Auto) Absent (Absent) 10/18/16 04:18 Ur Squamous Epith Cells Present (Absent) H 10/18/16 04:18 Urine Bacteria Absent (Absent) 10/18/16 04:18 Urine Glucose Negative (Negative) 10/18/16 04:18 General: female sitting up in chair in NAD who is cooperative with examination. She is notably slow to respond verbally at times. Neck: Carotid Pulses are 2+ bilaterally without murmurs on auscultation. Lungs: Chest is symmetric and lungs are clear to auscultation across all lung mccray. Heart: RRR, with no murmurs, rubs, or gallops. Abdomen: Normactive bowel sounds without tenderness to palpation Extremities: No edema, pedal pulses are 2+ bilaterally. Neuro: Patient is able to follow instructions after having to repeat instructions are given to her on EOM and finger to nose multiple times. EOMI and able to complete finger to nose. Pupils constrict to direct and consensual light. Patient is able to puff out cheeks, smile, frown, stick out tongue without deviation, and close eyes. Sensation is intact throughout dermatones and face, as well as strength throughout. Romberg test is negative. Patient is able to form sentences and answer appropriately. ] Assessment/Plan: [Ms. Lopez is a 56 yo female with PMH of DM, HTN, obesity, and LELAND admitted on 10/17 to [facility] for expressive aphasia. 1) Expressive Aphasia: Patient is currently is awaiting MRI scan but given history, exam, and lab results/imaging, ischemic CVA is highest on the differential list with vascular causation given patients past medical history. Patient will continue anti-platelet therapy with ASA, high dose statin with Lipitor 80 mg and remain on permissive HTN. Given that blood pressure readings have been systolic 100s-140s and diastolic 50s-80s, patient will be given 1,000 mL NS IV to maintain adequate perfusion. 2) Diabetes: Hold Metformin and continue SS Humalog. 3) Hypertension: Allow for permissive hypertension. Give IV NS as needed to maintain blood pressures and allow for adequate perfusion. 4) LELAND: CPAP at night. 5) DVT Prophylaxis: Heparin Sub Q 6) Code Status: Full Code Disposition: Pending MRI results. Anticipate discharge home when medically stable.
--- NOTE | 2016-10-18 16:18 | RAD ---
Indication: A fascia. Question posterior reversible encephalopathy syndrome. Comparison: October 16, 2016 CT and October 17, 2016 CT angiogram head and neck. Technique: [employer] [place] 1.5 Kizzy [id number] with GEM suite. MRI brain without contrast. Report: Diffusion series is negative for acute or subacute ischemia. Susceptibility series is negative for stigmata of hemosiderin deposition to indicate previous hemorrhage. Grossly symmetric mild increased FLAIR/T2 signal in the periventricular white matter most prominent at the bilateral parieto-occipital regions. Negative for mass effect. Unremarkable cerebral sulci, ventricles, and basal cisterns. Preserved major intracranial flow-voids. Unremarkable orbital contents. Fluid levels at the RIGHT maxillary and RIGHT sphenoid sinuses which may reflect acute sinusitis. Mucosal thickening at the ethmoid sinuses. Clear mastoid air spaces. No suspicious calvarial or skull base lesion evident. Unremarkable scalp. IMPRESSION: 1. While not entirely specific the mild grossly symmetric white matter signal abnormalities in the bilateral parietal occipital regions would be consistent with posterior reversible encephalopathy syndrome. Alternative etiologies include spectrum of chronic small vessel ischemic disease and demyelinating lesions. 2. Paranasal sinus disease with potential acute sinusitis at the RIGHT maxillary and sphenoid sinuses. Results discussed with Dr. Ortiz 10/18/2016 4:13 PM EDT
[2016-10-18] MEDS ORDERED: Atorvastatin* 80 MG TAB PO SCH (17:00)
--- NOTE | 2016-10-18 17:00 | PN ---
Subjective Date of Service: 10/18/16 Interval History: This is a 56 yo obese female with HTN, LELAND and NIDDM who presented with difficulty with word finding and CORTES. She was admitted with concerns for CVA. She was evaluated by Dr Ortiz who felt that PRES may also be a possibility with recent decongestant use for treatment of a cold. Today, patient's word finding difficulty has started improving. CORTES has resolved. Denies any new complaints. No numbness, tingling, weakness. Objective Active Medications: Acetaminophen (Tylenol Tab*) 650 mg PO Q4H PRN PRN Reason: FEVER/PAIN Al Hydrox/Mg Hydrox/Simethicone (Maalox Plus*) 30 ml PO Q6H PRN PRN Reason: INDIGESTION Aspirin (Aspirin Ec Low Dose*) 81 mg PO DAILY [facility] Last Admin: 10/18/16 09:35 Dose: 81 mg Atorvastatin Calcium (Lipitor*) 80 mg PO 1700 LIAN Bupropion HCl (Wellbutrin Sr Tab*) 100 mg PO QAM [facility] Last Admin: 10/18/16 09:36 Dose: 100 mg Dextrose (D50w Syringe 50 Ml*) 12.5 gm IV PUSH .FOR FS < 60 - SS PRN PRN Reason: FS < 60 Diphenhydramine HCl (Benadryl Po*) 25 mg PO BEDTIME PRN PRN Reason: INSOMNIA Docusate Sodium (Colace Cap*) 100 mg PO BID PRN PRN Reason: CONSTIPATION Heparin Sodium (Porcine) (Heparin Vial(*)) 5,000 units SUBCUT Q8HR [facility] Last Admin: 10/18/16 13:13 Dose: 5,000 units Insulin Human Lispro (Humalog*) 0 units SUBCUT AC [facility] PRN Reason: Protocol Last Admin: 10/18/16 13:13 Dose: 2 unit Ondansetron HCl (Zofran Inj*) 4 mg IV Q4H PRN PRN Reason: NAUSEA/VOMITING Senna (Senokot Tab*) 1 tab PO BID PRN PRN Reason: CONSTIPATION Sertraline HCl (Zoloft*) 100 mg PO DAILY [facility] Last Admin: 10/18/16 09:35 Dose: 100 mg Vital Signs: Temp Pulse Resp BP Pulse Ox 98.5 F 57 18 120/72 95 10/18/16 16:19 10/18/16 16:19 10/18/16 16:19 10/18/16 16:19 10/18/16 16:19 Oxygen Devices in Use Now: None Appearance: Well appearing middle aged female in NAD Respiratory: Symmetrical Chest Expansion and Respiratory Effort, Clear to Auscultation Cardiovascular: RRR, - - faint murmur noted Abdominal: NL Sounds; No Tenderness; No Distention Extremities: No Edema Skin: No Rash or Ulcers Neurological: Alert and Oriented x 3 Result Diagrams: 10/16/16 22:40 10/16/16 22:40 Additional Lab and Data: . Diagnostic Imaging: CT brain - WNL CTA - WNL MRI Brain - Bilateral white matter signal changes in the bilateral parietal occipital regions possibly consistent with PRES Assess/Plan/Problems-Billing Assessment: Ms. Lopez is a 56 yo female with a PMH of DM, HTN and LELAND who was admitted on 10/17/16 with expressive aphasia and difficulty focusing. - Patient Problems (1) Expressive aphasia Comment: Improving MRI appears most consistent with PRES, neurology feels that her presentation seems to be most consistent with this as well She is now normotensive, perhaps she had more severe HTN while taking recent decongestants for treatment of a URI which she is still recovering from (2) Diabetes Comment: HgbA1c 5.6 SS Humalog prn during her hospital stay (3) Hypertension Comment: Normotensive since admission Restart valsartan/HCTZ (4) LELAND (obstructive sleep apnea) Comment: Complaint with CPAP (5) DVT prophylaxis Comment: Heparin SQ. (6) Full code status Status and Disposition: Inpatient. Anticipate likely discharge tomorrow
--- NOTE | 2016-10-19 03:30 | EEG ---
ELECTROENCEPHALOGRAPHY: DATE OF STUDY: 10/17/16 - ROOM #444 LOCATION: The patient is an inpatient. PRIMARY CARE PHYSICIAN: Dr. Anders.* CLINICAL PROBLEM: This is a 56-year-old woman with a history of sleep apnea, depression, and possible diabetes as well as morbid obesity who presented to the emergency department on 10/16/16 with aphasia and altered mental status. CT scan of her brain showed possible hypodensities primarily in the posterior white matter bilaterally. She continues to have difficulty with her words. EEG is requested to evaluate for epileptiform abnormalities. MEDICATIONS: 1. Humalog sliding scale. 2. Heparin. 3. Aspirin 81 mg. 4. Wellbutrin. 5. Zoloft. 6. Lipitor. 7. Tylenol. 8. Maalox. 9. Benadryl. 10. Colace. 11. Zofran p.r.n. 12. Senokot. REPORT: The background demonstrates diffuse slowing and a relative loss of the expected organization. This slowing is high amplitude and in the range of 2 to 7 Hz in general. There is some semblance of anterior to posterior voltage and frequency gradients at times, but overall there is a loss of the expected gradients. The slowing is highest in the amplitude in the parasagittal regions bilaterally. There is a nonreactive posterior rhythm of approximately 7 to 8 Hz , which is present throughout the recording. Later in the recording, the patient appears to fall asleep and there are some sleep spindles noted bilaterally in the paracentral regions. However, the theta rhythm present in the general background persists through this sleep background as well. There is no focality to the slowing and no obvious epileptiform discharges present. Overall, the patient was quite drowsy during the recording and was only briefly aroused. CLINICAL IMPRESSION: This is an abnormal encephalopathic EEG due to the presence of diffuse background slowing. This is indicative of a moderate, nonspecific, diffuse encephalopathy. There are no epileptiform abnormalities. [id number]/[facility] #: [id number] [facility]
[2016-10-19] MEDS: Heparin VIAL(*) 5000 UNITS/ML VIAL (FIVE THOUSAND) SUBCUT SCH (05:37)
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
[2016-10-19] MEDS ORDERED: Valsartan/HCTZ 160/25(NF) TAB PO SCH (09:00)
[2016-10-19] MEDS ORDERED: Hydrochlorothiazide TAB* 25 MG PO SCH (09:00)
[2016-10-19] MEDS ORDERED: Valsartan TAB* 160 MG PO SCH (09:00)
[2016-10-19] MEDS: Insulin LISPRO* 1 UNITS UNIT SUBCUT SCH ×2 (09:30→12:14)
[2016-10-19] MEDS: Aspirin EC Low Dose* 81 MG TAB.EC PO SCH (09:31)
[2016-10-19] MEDS: buPROPion SR TAB.SR* 100 MG PO SCH (09:31)
[2016-10-19] MEDS: Sertraline* 100 MG TAB PO SCH (09:31)
--- NOTE | 2016-10-19 10:18 | PN ---
Progress Note - Progress Note SOAP: Subjective: This is a 56 yo female with PMH of HTN, LELAND, and NIDDM who presented with expressive aphasia and CORTES. She was admitted to medtele unit for CVA concerns but per consultation with Dr. Ortiz, PRES is a higher likely diagnosis with her recent decongestant use and MRI results that demostrated mild grossly symmetric ] Objective: [] Assessment: [] Plan: []
--- NOTE | 2016-10-19 13:45 | DS ---
DOA:10/17/2016 DOD: 10/19/2016 Care team: Admitting provider: Dr. Ana Blue Attending Provider: ANTELMO Young Neurologist: Dr. Odalys Ortiz PCP: Dr. Bella Anders [facility] Diagnosis: 1) Expressive aphasia secondary to Posterior reversible encephalopathy syndrome. Secondary diagnosis: 1) HTN 2) NIDDM 3) LELAND 4) Obesity with BMI of 41 Discharge medications: 1) Valsartan/HCTZ 160/25 PO daily 2) Sertraline 150 mg PO daily 3) atrovent 2 sprays nasally BID PRN 4) Metformin 500 mg PO daily 5) Buproprion 100 mg PO QAM 6) Advair 1 puff inhalation daily 7) Fluticasone Propionate 50 mcg inhalation BID 8) Benedryl 25 mg QHS as needed 9) Dymista 500 mg PO as needed Changes to home medications: None Imagin) Brain CT 10/16: Evidence of mild microvascular disease. 2) EKG 10/17: Sinus Rhythm with normal axis and rate. 3) CTA 10/17: Normal CT angio without evidence of stenosis/occlusion 4) Transthoracic echo 10/17: Normal left ventricular function with ventricular wall motion contractility within normal limits and ejection fraction o0f 55-60%. 5) EEG 10/17: Diffuse background slowing, indicative of moderate, non specific, diffuse encephalopathy. 6) Brain MRI 10/18: Mild grossly symmetric white matter signal abnormalities in the bilateral parietal occipital regions which is consistent with posterior reversible encephalopathy syndrome, otherwise normal MRI. Hospital Course: This is a 56 yo female with PMH of HTN, LELAND, obesity and NIDDM who presented to the ED with expressive aphasia and CORTES that persisted the entire day prior. She was admitted to medtele unit for CVA concerns and started on ASA therapy, high dose statin, and blood pressure medications were held and CT angiography and CT came back negative. She reportably had a cold a week prior to admission for which she was taking OTC decongestants for and has some subjective fever. She is unsure when symptoms began in the afternoon on day of admission but she reports difficulty focusing, expressing herself, and stumbling over words. Patient denies weakness or other focal neuro findings. Patient was consulted with neurology and per consultation with Dr. Ortiz, PRES is a more likely diagnosis with her recent decongestant use and MRI results. Throughout her hospitalization patient was normotensive and vital signs were within normal limits, perhaps prior to admission patient was hypertensive with decongestant use. Patient's Metformin was held and was given SS insulin with fingerstick glucose checks, H/H of , and was without abnormal chemistries. Given patient history and MRI results, diagnosis of PRES is most likely, which happens in states of hypertension. Patient's use of decongestants on top of her pre-existing HTN could have cause a severe hypertension that resulted in PRES. Patient showed significant improvement throughout hospital course and was able to vocalize her words better without confusion or difficulty focusing. On day of discharge patient reports mild CORTES in the frontal sinus region and still some difficulty remembering a few things that she normally remembers like family members phones numbers. Otherwise, she is speaking more clearly and is quicker to respond than the previous day. On PE: Patient is a obese female that is pleasant in NAD. Lungs: Clear to auscultation across all mccray. Heart: RRR without murmurs, rubs, or gallops. Abdomen: Soft and nontender to palpation with normoactive bowel sounds in all four quadrants. Extremities: No edema and pulses 2 +. Neuro: EOMI intact, Pupils are reactive to direct and consensual light bilaterally. Sensation and strength is intact bilaterally throughout. Patient is able to puff out cheeks, smile, frown, shut eyes, show teeth. Romberg and pronator drift both negative. Follow up/ Disposition: Patient is to be to her home in [place] with her brother who is coming here from [place] where she will stay for some time. Instruction has been given to follow up with PCP the next week and to return if symptoms worsen. She is also to follow up with Dr. Ortiz outpatient neurology. Patient will be discharge with no changes to home medications and restarted on blood pressure meds.
[2016-10-19 15:26] VITALS: BP 94/61
--- NOTE | 2016-10-20 03:18 | DS ---
CC: Dr. Bella Anders; Dr. Ortiz * DISCHARGE SUMMARY: DATE OF ADMISSION: 10/17/16 DATE OF DISCHARGE: 10/19/16 PRIMARY CARE PROVIDER: Dr. Bella Adners. CONSULTING NEUROLOGIST: Dr. Ortiz. DISCHARGING PROVIDER: ANTELMO Lemus SUPERVISING PHYSICIAN: Dr. Tenisha Sanderson. * (dictated by ANTELMO Lemus) PRIMARY DISCHARGE DIAGNOSIS: Expressive aphasia likely secondary to posterior reversible encephalopathy syndrome. SECONDARY DISCHARGE DIAGNOSES: 1. Hypertension - the patient has been normotensive during her hospital stay, no changes to her antihypertensives made at the time of discharge. 2. Diabetes with hemoglobin A1c of 5.6%. 3. Obstructive sleep apnea, compliant with CPAP. 4. Morbid obesity. HOSPITAL IMAGIN. CT of the brain shows evidence of mild microvascular disease. No acute findings. 2. CTA of the head shows normal angiography without significant stenosis, dissection, or aneurysmal changes. 3. MRI of the brain shows white matter signal abnormalities in the bilateral parietal occipital regions, which could be consistent with posterior reversible encephalopathy syndrome. 4. EKG shows sinus rhythm without acute ischemic changes. 5. Transthoracic echocardiogram shows normal appearing left ventricle with estimated EF of 55% to 60%. There is aortic sclerosis but without stenosis and mild- to-moderate mitral regurg, evidence of borderline pulmonary hypertension, and moderate dilation of the ascending aorta measuring at 4.5 cm. 6. EEG demonstrates diffuse background slowing indicative of a moderate nonspecific diffuse encephalopathy without epileptiform abnormalities. HOSPITAL COURSE: This is a 56-year-old female with hypertension, non-insulin- dependent diabetes, obstructive sleep apnea, and morbid obesity including a BMI of 41, who presented to the emergency department with difficulty finding words and just feeling "off". The patient's symptoms started rather suddenly on the day of admission. She had an associated headache, which was mostly left-sided. She had recently been treating URI symptoms with [id number] decongestions, but has otherwise felt well. There were no associated visual symptoms. No motor weakness, numbness, tingling. She had no difficulty with balance or complaints of dizziness. Her initial imaging including a CT and CTA of the brain were unremarkable. Her initial labs were also unremarkable. No significant electrolyte abnormalities. Her initial labs showed mild hypertension with a blood pressure of 142/75, but were otherwise within normal limits. The patient was subsequently admitted for further evaluation with concerns for a TIA versus CVA. The patient was evaluated by Dr. Ortiz, neurologist, who felt that her symptoms did not quite clearly fit into a distribution explainable by an acute CVA and suspected that PRES may be responsible for her symptoms, although she was normotensive at the time of admission. MRI did demonstrate symmetric white matter changes, most pronounced in the posterior parietal occipital region, which would be consistent with PRES. The patient's symptoms gradually resolved during her hospital stay. Her mentation improved back to baseline, and the patient had little to no difficulty with word finding at the time of discharge. No complaints of weakness, numbness, or tingling developed during her hospital stay. It seems most likely that the patient was treating her recent cold symptoms with decongestants, which caused at least a transient hypertension, which led to her acute presentation as a result of PRES. Discussed avoiding decongestants in the future as well as maintaining a low-salt diet, but she remains normotensive during her hospital stay. DISPOSITION AND FOLLOWUP PLAN: The patient is being discharged to home at this time. Her brother is going to come and stay with her for a bit. No medication changes are recommended at this time. She is instructed to follow up with her primary care provider and monitor her blood pressure at home by recording resting blood pressure 1 to 2 times daily, recording this and bringing her log with her to her primary care provider's office at the time of followup. She will also follow up with Dr. Ortiz in approximately 1 month and likely have a repeat MRI at that time. ANTELMO LEMUS [id number]/[facility] #: [id number]
== END 2016-10-19 15:25 | disposition home or self-care (01) ==
LOC: ED 22:25 → MEDTELE 10-17 02:26 → OBSVTOIN 10-18 16:49 → INTOOBSV 10-18 16:49
PROVIDERS: ADMIT Pediatrics; ATTEND Internal Medicine
DX: R47.01 Aphasia (principal); I10 Essential (primary) hypertension; E11.9 Type 2 diabetes mellitus without complications; G47.33 Obstructive sleep apnea (adult) (pediatric); E66.01 Morbid (severe) obesity due to excess calories; Z68.41 Body mass index [BMI] 40.0-44.9, adult
CPT/HCPCS: 36415; 70450; 70496; 70498; 70551; 80053; 80061; 81003; 81015; 83036; 83605; 84484; 85025; 85610; 87077; 87086; 87186; 93005; 93306; 94660; 95819; 96374; 96375; 99285; A9270-GY; G0378; J1644; Q9967

== ENCOUNTER 2017-07-08 06:21 | Day surgery (SDC) | payer OTHER ==
[~2017-07-08 06:21] MED LIST: Buffered Lidocaine 0.9% SYRIN* 5 ML/SYR SYRINGE INTRADERM ONE; Famotidine IV* 10 MG/ML 2 ML (20 mg) IV ONE
[2017-07-08] MEDS ORDERED: Famotidine IV* 10 MG/ML 2 ML (20 mg) ONE (06:35)
[2017-07-08] MEDS ORDERED: Buffered Lidocaine 0.9% SYRIN* 5 ML/SYR SYRINGE ONE (06:35)
[2017-07-08] MEDS ORDERED: fentaNYL* 50 MCG/ML 2 ML VIAL (100 MCG VIAL) ONE (07:29)
[2017-07-08] MEDS ORDERED: Midazolam* 1 MG/ML 5 ML VIAL (5 MG) ONE (07:29)
[2017-07-08] MEDS ORDERED: Propofol* 10 MG/ML 20 ML BTL IV PUSH ONE (08:04)
[2017-07-08] MEDS ORDERED: Dexamethasone IV* 4 MG/ML 1 ML (4 MG) ONE (08:04)
[2017-07-08] MEDS ORDERED: Ketorolac INJ* 30 MG/ML 1 ML VIAL ONE (08:04)
[2017-07-08] MEDS ORDERED: Lidocaine 2% PF * 5 ML VIAL ONE (08:04)
[2017-07-08] MEDS ORDERED: DiMENhydriNATE IV* 50 MG/ML VIAL ONE (08:04)
[2017-07-08] MEDS ORDERED: Ondansetron INJ* 2 MG/ML VIAL ONE (08:04)
[2017-07-08] MEDS ORDERED: DiMENhydriNATE IV* 50 MG/ML VIAL IV PUSH PRN (08:23)
[2017-07-08] MEDS ORDERED: Acetaminophen TAB* 325 MG PO PRN (08:23)
[2017-07-08] MEDS ORDERED: Naloxone* 0.4 MG/ML 1 ML VIAL IV PRN (08:23)
[2017-07-08] MEDS ORDERED: Acetaminophen TAB* 325 MG ONE (08:35)
[2017-07-08 11:26] VITALS: BP 97/64
--- NOTE | 2017-07-08 15:58 | OP ---
DATE OF OPERATION: 07/08/17 - [facility] DATE OF : 56 SURGEON: Aravind Bal MD. ANESTHESIOLOGIST: Olya Lozano MD ANESTHESIA: General endotracheal tube. PRE-OP DIAGNOSIS: Submucosal polyps. POST-OP DIAGNOSIS: Submucosal polyps. OPERATIVE PROCEDURE: D and C, hysteroscopy, MyoSure. ESTIMATED BLOOD LOSS: Minimal. DEFICIT: 95 cc of saline. SPECIMEN: Includes polyp in the endometrium. FINDINGS: On exam under anesthesia, the uterus was mid position, cervix, vagina and vulva appeared normal. On hysteroscopy, a 2 cm endometrial polyp was noted in the uterine cavity. Otherwise, the cavity appeared normal and atrophic. DESCRIPTION OF PROCEDURE: The patient identified, procedure identified as a D and C, hysteroscopy. The patient was taken to the operating room, prepped and draped in the usual fashion in the dorsal lithotomy position under general anesthesia. Two single-toothed tenaculums were placed on the anterior lip of the cervix. The cervix was dilated up to a #28 Delfin dilator. The MyoSure hysteroscope was inserted. The above findings were noted. The MyoSure Regular was utilized to resect the polyp, which was done with ease. At the end of the procedure, a normal cavity was visualized and a good specimen had been obtained. All instruments were removed from the vagina. All sponge and instrument counts were correct and the patient returned to recovery room in stable condition. [id number]/[facility] #: [id number] MTDD
== END 2017-07-08 11:08 | disposition home or self-care (01) ==
LOC: OR 06:21
PROVIDERS: ATTEND Obstetrics & Gynecology
DX: N95.0 Postmenopausal bleeding (principal); N84.0 Polyp of corpus uteri; E11.9 Type 2 diabetes mellitus without complications; Z79.84 Long term (current) use of oral hypoglycemic drugs; I10 Essential (primary) hypertension; A60.04 Herpesviral vulvovaginitis; G04.01 Postinfectious acute disseminated encephalitis and encephalomyelitis (postinfectious ADEM); J45.909 Unspecified asthma, uncomplicated; G47.33 Obstructive sleep apnea (adult) (pediatric); M19.90 Unspecified osteoarthritis, unspecified site; E66.01 Morbid (severe) obesity due to excess calories
CPT/HCPCS: 88305; A9270-GY; J1100; J1240; J1885; J2250; J2405; J2704; J3010

== ENCOUNTER 2019-05-02 07:56 | Emergency (ER) | payer OTHER ==
--- OUTSIDE RECORDS SUMMARY | 2019-05-02 08:02 | XMS REPORT | Continuity of Care Document ---
:1960 External Reference #:[id number] Author Name ANTELMO Ospina (transmitted by agent of provider Gera Montano) Address [address] [facility] [place] [address] Care Team Providers Name Role Phone Dwayne Yeager FNP-Valarie Care Team Information Logistics Analyst Unavailable Bella Anders MD - Internal Care Team Information Logistics Analyst Medicine Problems Active Problems Provider Date Moderate persistent asthma Gera Montano MD Onset: 12/03/2015 Allergic rhinitis Gera Montano MD Onset: 12/03/2015 Allergic rhinitis due to pollen Gera Montano MD Onset: 12/03/2015 Social History Type Date Description Comments Sex Unknown Tobacco Use Start: Unknown Never Smoked Cigarettes Smoking Status Reviewed: 03/07/19 Never Smoked Cigarettes Tobacco Use Start: Unknown Patient has never smoked Allergies, Adverse Reactions, Alerts Description No Known Drug Allergies Medications Active Medications SIG Qnty Indications Ordering Provider Date Proair HFA 2 puffs every 4 1units J30.1 Gera Kumar 12/03/2015 as needed MD Dusty 108(90Base) mcg/Act Aerosol Advair Diskus inhale one puff 60units J30.1 Gera Kumar 12/03/2015 by mouth twice MD Dusty 100-50mcg/Dose a day Aerosol Dymista spray one spray 23gm J30.1 Gera Kumar 12/03/2015 137-50mcg/Act in each nostril MD Dusty Suspension twice a day Sertraline HCL Unknown 100mg Tablets Valsartan-Hydrochlor Unknown othiazide 160-12.5mg Tablets Metformin HCL ER Unknown (Osm) 500mg Tablets ER 24HR Immunizations Description No Information Available Vital Signs Date Vital Result Comment 03/07/2019 8:44am BP Systolic 122 mmHg BP Diastolic 71 mmHg Height 63 inches 5'3" Weight 256.00 lb BMI (Body Mass Index) 45.3 kg/m2 Heart Rate 71 /min O2 % BldC Oximetry 98 % 01/19/2017 10:51am BP Systolic 130 mmHg BP Diastolic 82 mmHg Height 63 inches 5'3" Weight 256.00 lb BMI (Body Mass Index) 45.3 kg/m2 Heart Rate 86 /min Respiratory Rate 18 /min Body Temperature 97.4 F O2 % BldC Oximetry 96 % Results Description No Information Available Procedures Date Code Description Status 03/07/2019 66120 Nitric Oxide Gas Determination Completed 03/07/2019 88206 Bronchodilation Responsiveness Spirometry Pre/Post Completed Bronchodil Adm Medical Devices Description No Information Available Encounters Type Date Location Provider Dx Diagnosis Office Visit 03/07/2019 [place] ANTELMO Ospina J45.40 Moderate persistent 8:30a asthma, uncomplicated J30.1 Allergic rhinitis due to pollen J30.89 Other allergic rhinitis Assessments Date Code Description Provider 03/07/2019 J45.40 Moderate persistent asthma, uncomplicated ANTELMO Ospina 03/07/2019 J30.1 Allergic rhinitis due to pollen ANTELMO Ospina 03/07/2019 J30.89 Other allergic rhinitis ANTELMO Ospina Plan of Treatment Future Appointment(s):09/05/2019 1:30 pm - ANTELMO Ospina at [facility]/07/2019 - ANTELMO OspinaJ45.40 Moderate persistent asthma, uncomplicatedComments:Patient 's PFT shows moderate restriction and exhaled nitric oxide is slightly elevated at 26 ppb. Patient to continue Advair but will increase her daily dose to 2 puffs twice a day. Patient advised to use her rescue inhaler 15 minutes prior to physical exertion such as swimming.Follow up:6 months, PFT and NIOX fktukG32.1 Allergic rhinitis due to rtsrtbH35.89 Other allergic rhinitis Functional Status Description No Information Available Mental Status Description No Information Available Referrals Description No Information Available
--- OUTSIDE RECORDS SUMMARY | 2019-05-02 08:02 | XMS REPORT | Continuity of Care Document ---
:1960 External Reference #:[id number] Author Name Gera Drew M.D. (transmitted by agent of provider [facility] [place]) Address [address] [place] [address], [place] [address] Care Team Providers Name Role Phone Bella Anders MD - Internal Care Team Information Ultimate Hoops Trainer [facility] - Anderson Ronal Freire DPM - Foot Surgery Care Team Information Ultimate Hoops Trainer Gera Montano MD - Allergy & Care Team Information Ultimate Hoops Trainer Immunology Muriel Richards MD - Care Team Information Ultimate Hoops Trainer [phone] Obstetrics & Gynecology [facility] - Care Team Information Ultimate Hoops Trainer Contact And Service Clerks Supervisor Problems Active Problems Provider Date Benign essential hypertension Precious Layne M.D., FACP Onset: 07/07/2010 Anemia Precious Layne M.D., FACP Onset: 07/07/2010 Morbid obesity Precious Layne M.D., FACP Onset: 07/07/2010 Depressive disorder Precious Layne M.D., FACP Onset: 07/07/2010 Type 2 diabetes mellitus Bella Anders M.D. Onset: 05/30/2011 Acute disseminated encephalomyelitis Odalys Ortiz MD Onset: 05/24/2017 Recurrent major depressive episodes Gera Drew M.D. Onset: 04/06/2019 Chronic fatigue syndrome Gera Drew M.D. Onset: 04/06/2019 Amnesia Gera Drew M.D. 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 Social History Type Date Description Comments Sex Unknown ETOH Use Denies alcohol use Tobacco Use Start: Unknown Patient has never smoked Smoking Status Reviewed: 04/06/19 Patient has never smoked Exercise Type/Frequency Exercises sporadically Exercise Limitations Shortness Of Breath Allergies, Adverse Reactions, Alerts Active Allergies Reaction Severity Comments Date Morphine itching, burning 11/08/2017 Inactive Allergies No Known Drug Allergy 01/19/2010 Medications Active Medications SIG Qnty Indications Ordering Date Provider Mucinex 1 by mouth twice a 14tabs R05 Kylahofiheather Mart, 03/08/2018 600mg day [employer] Tablets ER 12HR Naproxen 1 by mouth twice a 180tabs M17.12 Chris F 08/23/2016 500mg day as needed pain MD Denise Tablets Valsartan-Hydrochlo take one tablet by 90tabs Bella 09/25/2013 rothiazide mouth every day Gayle Anders 160-25mg Tablets Metformin HCL ER Take One Tablet By 90tabs Bella 07/17/2012 Mouth Every Day Gayle Anders 500mg Tablets ER 24HR Sertraline HCL Take 1+1/2 Tablets 135tabs Bella 08/18/2010 By Mouth Once Gayle Anders 100mg Tablets Daily Vitamin B-12 1 by mouth twice a Unknown Natural day 500mcg Tablets Vitamin C 1 by mouth every Unknown 500mg day Capsules Advair Diskus use one inhalation 180units J45.909 Kylahofia Mart, two times a day [employer]ECT 100-50mcg/Dose Aerosol R05 Proair HFA 2 puffs 4 times 25.5gm Bella [place], 108(90Base) daily as needed M.D. mcg/Act Aerosol Dymista 1 nasal spray per 69gm Bella Cotton, 137-50mcg/Act nostril twice a day M.D. Suspension Benadryl Allergy 1-2 tabs twice a 180tabs Bella Cotton, 25mg Tablets day as needed M.D. Melatonin 1 tab 2 to 3 hours Unknown Liquid before bedtime History Medications Doxycycline Hyclate 1 by mouth 10caps J18.9 Lauren Jyoti, 12/14/2018 - twice a day DO 01/19/2019 100mg Capsules Prednisone 1 by mouth 5tabs J18.9 Lauren Jyoti, 12/14/2018 - 50mg Tablets every day DO 12/20/2018 Medications Administered in Office Medication SIG Qnty Indications Ordering Provider Date Depomedrol 40MG ANTELMO Ocasio 01/09/2019 Injection No Injection Chris Walker MD 03/09/2017 Injection Depomedrol 40MG Chris Walker MD 03/09/2017 Injection Immunizations CPT Code Status Date Vaccine Reaction Lot # [id number] Given 02/11/2017 Influenza Virus Vaccine, [id number] Quadrivalent, Split, Preservative Free [id number] Given 02/06/2016 Influ Virus Vaccine, no reaction noted ... [id number] Quadrivalent, Split Virus, [place] [address] Given 01/28/2015 Influenza Virus Vaccine, [id number] Quadrivalent, Split, Preservative Free [id number] Given 01/27/2012 Fluzone Vaccine [id number] 65357 Given 10/28/2011 Pneumonia Vaccine [id number] 54710 Given 01/14/2011 Influenza Virus 3Yrs & Over [id number] 42560 Given 01/20/2010 Influenza Virus 3Yrs & Over 89873 Given 05/21/2009 Influenza Virus Vaccine, Pandemic Formulation 96373 Given 05/21/2009 Administration Swine Flu Shot 94742 Given 01/15/2009 Influenza Virus 3Yrs & Over 77450 Given 03/27/2008 IPV/Poliomyelitis Immunization 33462 Given 02/20/2008 Influenza Virus 3Yrs & Over 02161 Given 02/20/2008 Influenza Virus 3Yrs & Over Vital Signs Date Vital Result Comment 04/06/2019 10:13am Height 63.5 inches 5'3.50" Weight 285.25 lb Heart Rate 96 /min BP Systolic Sitting 122 mmHg BP Diastolic Sitting 80 mmHg Respiratory Rate 24 /min BMI (Body Mass Index) 49.7 kg/m2 01/19/2019 3:03pm Height 63.5 inches 5'3.50" Weight 285.00 lb Heart Rate 90 /min BP Systolic 113 mmHg BP Diastolic 73 mmHg O2 % BldC Oximetry 97 % BMI (Body Mass Index) 49.7 kg/m2 Results Test Acquired Date Facility Test Result H/L Range Note Laboratory test 01/19/2019 [facility] In House Hemoglobin A1c 5.5 5-7 finding Procedures Date Code Description Status 01/09/2019 37680 Inject/Drain Joint/Bursa Major W/O US Completed 12/22/2018 [id number] Mammogram Completed 07/12/2017 [id number] Diabetic Retinal Eye Exam Completed 06/06/2017 [id number] Mammogram Completed 05/17/2016 [id number] Diabetic Retinal Eye Exam Completed 10/09/2015 [id number] Mammogram Completed 06/25/2014 [id number] Mammogram Completed 01/08/2014 [id number] Diabetic Retinal Eye Exam Completed 05/12/2012 [id number] Mammogram Completed 03/28/2012 [id number] Diabetic Retinal Eye Exam Completed 01/28/2010 [id number] Mammogram Completed 03/14/2009 [id number] Colonoscopy Completed Medical Devices Description No Information Available Encounters Type Date Location Provider Dx Diagnosis Office Visit 01/19/2019 [facility] Internal Bella Anders, E11.9 Type 2 diabetes 2:40p Medicine - [facility] Araujo mellitus without complications I10 Essential (primary) hypertension F33.9 Major depressive disorder, recurrent, unspecified Office Visit 01/09/2019 9:45a [facility] Chris F M25.562 Pain in at Elida Walker MD left knee M17.12 Unilateral primary osteoarthritis, left knee Office Visit 12/14/2018 1:00p [facility] Internal Lauren J18.9 Pneumonia, Medicine - [address], DO unspecified R organism Z12.31 Encntr screen mammogram for malignant neoplasm of breast Assessments Date Code Description Provider 04/06/2019 G09 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 04/06/2019 R53.82 Chronic fatigue, unspecified Gera Drew M.D. 04/06/2019 F33.9 Major depressive disorder, recurrent, Gera Drew M.D. unspecified 01/19/2019 E11.9 Type 2 diabetes mellitus without Bella Anders M.D. complications 01/19/2019 I10 Essential (primary) hypertension Bella Anders M.D. 01/19/2019 F33.9 Major depressive disorder, recurrent, Bella Anders M.D. unspecified 01/09/2019 M17.12 Unilateral primary osteoarthritis, left Keli Mayorga, PA knee 01/09/2019 M25.562 Pain in left knee Chris Walker MD 01/09/2019 M17.12 Unilateral primary osteoarthritis, left Chris Walker MD knee 12/14/2018 J18.9 Pneumonia, unspecified organism Lauren Montes DO 12/14/2018 Z12.31 Encounter for screening mammogram for Lauren DO Jyoti malignant neoplasm of breast Plan of Treatment Future Appointment(s):06/22/2019 3:00 pm - Bella Anders M.D. at [facility] Gera Drew M.D.G09 Sequelae of inflammatory diseases of central nervous systemFollow up:Follow up after neurocognitive testingRecommendations:Call me once you know when your two appointments Call me 1 week after the MRI to review the qwgjsdpN17.3 Other msmmuovV31.82 Chronic fatigue, qxcsdrthuewU98.9 Major depressive disorder, recurrent, unspecified Functional Status Description No Information Available Mental Status Description No Information Available Referrals Refer to Reason for Referral Status Appt Date [facility] Sent 02/08/[address] [place] [address] [address] [place] [address] [phone]
[2019-05-02 08:07] VITALS: BP 135/79
--- NOTE | 2019-05-02 08:29 | UC ---
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 She has used loratidine for congestion, which improved, but she has persistent episodes of sharp right pain. No hearing loss, sore throat, fever. Hx of asthma which is stable. She has not taken any analgesics. Does have some dental sensitivity in the right lower jaw. - History of Current Complaint Chief Complaint: UCEar Stated Complaint: EAR PAIN Time Seen by Provider: 05/02/19 08:05 Hx Obtained From: Patient Hx Last Menstrual Period: unknown Onset/Duration: Gradual Onset, Lasting Days - 3 Severity Initially: Moderate Severity Currently: Moderate Pain Intensity: 8 Aggravating Factors: Heat, Cold Alleviating Factors: Nothing Associated Signs/Symptoms: Positive: Swelling @ - mild right cheek swelling. - Allergies/Home Medications Allergies/Adverse Reactions: Allergies Allergy/AdvReac Type Severity Reaction Status Date / Time morphine Allergy Mild ithching Verified 05/02/19 08:07 environmental Allergy runny Uncoded 05/02/19 08:07 eyes, congestion, itchy eyes PMH/Surg Hx/FS Hx/Imm Hx - Additional Past Medical History Additional PMH: obese Endocrine History: Other - Metabolic syndrome, takes metformin Cardiovascular History: Hypertension Respiratory History: Asthma Psychological History: Other - ADEM (acute demylenating encephalomyopathy). - Surgical History Surgical History: Yes Surgery Procedure, Year, and Place: bi-lateral rentina laser surgery 2000, ( PT DENIES ANY IMPLANTS). myomectomy 2000,. D&C [id number] - Family History Known Family History: Positive: Diabetes - mothe, Other - CVA; both parents have dementia - Social History Occupation: Employed Full-time Alcohol Use: Occasionally Alcohol Amount: `new years Substance Use Type: None Smoking Status (MU): Never Smoked Tobacco Have You Smoked in the Last Year: No - Immunization History Most Recent Influenza Vaccination: fall 2015 Most Recent Pneumonia Vaccination: in past Review of Systems All Other Systems Reviewed And Are Negative: Yes Constitutional: Positive: Fatigue Skin: Positive: Negative Eyes: Positive: Negative ENT: Positive: Dental Pain, Ear Ache, Sinus Congestion Respiratory: Positive: Negative Cardiovascular: Positive: Negative Gastrointestinal: Positive: Negative Genitourinary: Positive: Negative Motor: Positive: Negative Neurovascular: Positive: Other - pending cognitive assessment. Musculoskeletal: Positive: Negative Neurological: Positive: Negative Psychological: Positive: Negative Is Patient Immunocompromised?: No Physical Exam Triage Information Reviewed: Yes Appearance: Well-Appearing, Pain Distress - moderate, Obese Vital Signs: Initial Vital Signs Temp 98.1 F 05/02/19 08:02 Pulse 85 05/02/19 08:02 Resp 18 05/02/19 08:02 BP 135/79 05/02/19 08:02 Pulse Ox 96 05/02/19 08:02 Eyes: Positive: Conjunctiva Clear, Other: - BAN, normal eom, no photophobia or nystagmus ENT: Positive: Pharynx normal, TMs normal Dental: Positive: Percussion Tenderness @. Negative: Gross Decay/Caries @, Dental Fracture @, Abscess @ Neck: Positive: Supple, Nontender, Enlarged Nodes @ - submandibular Respiratory: Positive: Lungs clear, Normal breath sounds Cardiovascular: Positive: RRR, No Murmur Musculoskeletal Exam: Normal Neurological Exam: Normal Psychological Exam: Normal Skin Exam: Normal Images Dental: 1 - percussion tenderness, gum retraction, no abscess seen Ear Complaint Course/Dx - Course Course Of Treatment: Suspect dental source of pain given percussion tenderness and mild facial swelling, sensitivity to heat, cold and brushing. Will begin penVK, use naproxen for control of pain, and follow up with her dentist JENNIFER. - Differential Dx/Diagnosis Differential Diagnosis/HQI/PQRI: Otitis Externa, Otitis Media, Pharyngitis, URI , Other - dental pain Provider Diagnosis: Pain, dental Discharge ED - Sign-Out/Discharge Documenting (check all that apply): Patient Departure All imaging exams completed and their final reports reviewed: No Studies - Discharge Plan Condition: Stable Disposition: HOME Prescriptions: Penicillin VK 500 MG TAB(NF) [Penicillin VK 500 mg Tab] 500 mg PO QID #28 tab Patient Education Materials: Toothache (ED) Referrals: Bella Anders MD [Primary Care Provider] - Additional Instructions: One of your lower molars is the suspected source of the pain. Begin use of Penicillin VK to treat likely infection as a cause. Use naproxen twice daily for treatment of pain, and you can use acetaminophen 650mg up to 4 times per day in addition to the naproxen. - Billing Disposition and Condition Condition: STABLE Disposition: Home
== END 2019-05-02 08:46 | disposition home or self-care (01) ==
LOC: UCEAST 07:56
DX: K08.89 Other specified disorders of teeth and supporting structures (principal); I10 Essential (primary) hypertension; J45.909 Unspecified asthma, uncomplicated; E88.81 Metabolic syndrome and other insulin resistance; R53.83 Other fatigue; H92.01 Otalgia, right ear; Z79.84 Long term (current) use of oral hypoglycemic drugs; Z88.5 Allergy status to narcotic agent; Z91.09 Other allergy status, other than to drugs and biological substances
CPT/HCPCS: 99212; G0463

== ENCOUNTER 2019-06-19 19:16 | Emergency (ER) | payer OTHER ==
[2019-06-19 19:22] VITALS: BP 117/74
--- NOTE | 2019-06-19 19:32 | UC ---
Abdominal Pain Female HPI - HPI Summary HPI Summary: 58 yo female presents with abdominal pain. She tells me that last night she developed epigastric and LLQ abdominal pain with nausea, vomiting, and temp of 100.8F. Today her abdominal pain and nausea have continued, but she has not had any vomiting. She has not had anything to eat today, but has been tolerating sips of water. Temp this morning was 99F, but then went back up to 100.8F this pm. She has not had any diarrhea. Denies SOB, chest pain, back/flank pain, dysuria, vaginal bleeding or discharge. Pt states she did have a colonoscopy a few years ago that was normal. - History of Current Complaint Chief Complaint: UCAbdominalPain Stated Complaint: ABD PAIN, VOMITING, FEVER Time Seen by Provider: 06/19/19 19:31 Hx Obtained From: Patient Hx Last Menstrual Period: unknown Onset/Duration: Sudden Onset Severity Initially: Moderate Severity Currently: Moderate Pain Intensity: 5 Pain Scale Used: 0-10 Numeric Allergies/Adverse Reactions: Allergies Allergy/AdvReac Type Severity Reaction Status Date / Time morphine Allergy Mild ithching Verified 06/19/19 19:22 environmental Allergy runny Uncoded 06/19/19 19:22 eyes, congestion, itchy eyes Home Medications: Home Medications Simethicone [Gas-X] PRN 06/19/19 [History] PMH/Surg Hx/FS Hx/Imm Hx Endocrine History: Diabetes Cardiovascular History: Hypertension Respiratory History: Asthma - Surgical History Surgical History: Yes Surgery Procedure, Year, and Place: bi-lateral rentina laser surgery 2000, ( PT DENIES ANY IMPLANTS). myomectomy 2000,. D&C [id number] - Family History Known Family History: Positive: Diabetes - mothe, Other - CVA; both parents have dementia - Social History Lives: With Family Alcohol Use: Occasionally Alcohol Amount: `new years Substance Use Type: None Smoking Status (MU): Never Smoked Tobacco Have You Smoked in the Last Year: No - Immunization History Most Recent Influenza Vaccination: fall 2015 Most Recent Pneumonia Vaccination: in past Review of Systems All Other Systems Reviewed And Are Negative: No Constitutional: Positive: Fever Skin: Positive: Negative Eyes: Positive: Negative ENT: Positive: Negative Respiratory: Positive: Negative Cardiovascular: Positive: Negative Gastrointestinal: Positive: Abdominal Pain, Vomiting, Nausea Genitourinary: Positive: Negative Neurological/Mental Status: Positive: Negative Psychological: Positive: Negative Physical Exam - Summary Physical Exam Summary: GENERAL: NAD. SKIN: No rashes, sores, or open wounds. HEENT: Head: AT/NC Eyes: PERRLA. EOM intact. Conjunctiva clear without inflammation or discharge. Ears: Hearing grossly normal. TMs intact, no bulging, erythema, or edema. Nose: Nasal mucosa pink and moist. NTTP maxillary and frontal sinus. Throat: Posterior oropharynx without exudates, erythema, or tonsillar enlargement. Uvula midline. NECK: Supple. Nontender. No lymphadenopathy. CHEST: CTAB. No r/r/w. No accessory muscle use. Breathing comfortably and in no distress. CV: RRR. Pulses intact. Brisk cap refill. ABDOMEN: Limited exam due to body habitus. Moderate LLQ TTP. Mild epigastric TTP. No distention or guarding. No CVA tenderness. Bowel sounds present NEURO: Alert. PSYCH: Age appropriate behavior. Triage Information Reviewed: Yes Vital Signs: Initial Vital Signs Temp 98 F 06/19/19 19:18 Pulse 99 06/19/19 19:18 Resp 20 06/19/19 19:18 BP 117/74 06/19/19 19:18 Pulse Ox 99 06/19/19 19:18 Laboratory Tests 06/19/19 06/19/19 06/19/19 19:39 19:43 19:47 POC Glucose (mg/dL) 115 H POC Urine Color Yellow POC Urine Clarity Clear POC Urine pH 6.0 POC Ur Specif Velva 1.015 POC Urine Protein Negative POC Ur Glucose (UA) Negative POC Urine Ketones Negative POC Urine Blood Trace-intact POC Urine Nitrite Negative POC Urine Bilirubin Negative POC Urine Urobilinogen 1.0 POC U Leukocyte Esteras Trace Influenza A (Rapid) Negative Influenza B (Rapid) Negative Valsartan/HCTZ 160/25(NF) [Diovan Hct 160/25(NF)] 1 tab PO QAM 05/19/12 [ History Confirmed 06/19/19] Dymista(NF) 1 spray NASAL BID 10/17/16 [History Confirmed 06/19/19] Metformin ER (NF) 500 mg PO QPM 10/17/16 [History Confirmed 06/19/19] Fluticasone-Salmeterol 100-50* [Advair Diskus 100-50*] 1 puff INH BID 10/19/16 [ History Confirmed 06/19/19] Sertraline* [Zoloft*] 150 mg PO QAM 06/29/17 [History Confirmed 06/19/19] Simethicone [Gas-X] PRN 06/19/19 [History] Vital Signs Reviewed: Yes Abd Pain Female Course/Dx - Course Course Of Treatment: UA, poc flu, and glucose as above. She is generally well appearing and afebrile here. Given measured fever at home, vomiting/nausea, and LLQ tenderness on exam - concern for diverticulitis. I recommended going to the ED for further evaluation. Pt did not want to go to the ED this evening, but states if her symptoms worsen she will go this evening otherwise prefers to go in the morning. I made her aware that her condition could worsen to include, but not limited to , abscess, peritonitis, sepsis, permanent disability, or . Pt voiced understanding. - Differential Dx/Diagnosis Provider Diagnosis: LLQ pain, Vomiting Discharge ED - Sign-Out/Discharge Documenting (check all that apply): Patient Departure All imaging exams completed and their final reports reviewed: No Studies - Discharge Plan Condition: Stable Disposition: HOME-RECOMMEND TO ED Referrals: Bella Anders MD [Primary Care Provider] - Additional Instructions: I recommend going to the ER for further evaluation of your fever and abdominal pain - Billing Disposition and Condition Condition: STABLE Disposition: Home-Recommend to ED
[2019-06-19 19:50] LABS: Influenza A Molecular Negative (Negative); Influenza B Molecular Negative (Negative)
== END 2019-06-19 20:20 | disposition home health service (06) ==
LOC: UCEAST 19:16
DX: R10.32 Left lower quadrant pain (principal); R11.2 Nausea with vomiting, unspecified; E11.9 Type 2 diabetes mellitus without complications; I10 Essential (primary) hypertension; J45.909 Unspecified asthma, uncomplicated; Z88.5 Allergy status to narcotic agent; Z91.09 Other allergy status, other than to drugs and biological substances
CPT/HCPCS: 81003; 87086; 99212; G0463

== ENCOUNTER 2019-06-20 10:52 | Emergency (ER) | payer OTHER ==
[2019-06-20 12:35] LABS: ABS Basophils 0.1 10^3/ul (0-0.2); ABS Lymphocytes 1.3 10^3/ul (1.0-4.8); ABS Monocytes 0.5 10^3/ul (0-0.8); ABS Neutrophils 6.2 10^3/ul (1.5-7.7); Eosinophil % 0.2 %; Hematocrit 33 % (35-47); Hemoglobin 10.8 g/dL (12.0-16.0); Lymphocyte % 16.5 %; Mean Corpuscular HGB Conc 33 g/dL (31-36); Mean Corpuscular Hemoglobin 25 pg (27-31); Mean Corpuscular Volume 75 fL (80-97); Mean Platelet Volume 9.2 fL (7.4-10.4); Nucleated Red Blood Cells % 0.1; Platelet Count 186 10^3/uL (150-450); Red Blood Count 4.41 10^6 /uL (3.70-4.87); Red Cell Distribution Width 19 % (10-15); White Blood Count 8.2 10^3/uL (3.5-10.8)
[2019-06-20 13:02] LABS: ALT 13 U/L (7-52); AST 15 U/L (13-39); Albumin 4.1 g/dL (3.2-5.2); Albumin/Globulin Ratio 1.2 (1-3); Alkaline Phosphatase 83 U/L (34-104); Anion Gap 7 mmol/L (2-11); BUN/Creatinine Ratio 20.8 (8-20); Blood Urea Nitrogen 16 mg/dL (6-24); CO2 Carbon Dioxide 30 mmol/L (22-32); Calcium 9.5 mg/dL (8.6-10.3); Chloride 102 mmol/L (101-111); EGFR African American 92.5 (>60); EGFR Non-African American 76.5 (>60); Globulin 3.5 g/dL (2-4); Glucose 112 mg/dL (70-100); Potassium 3.9 mmol/L (3.5-5.0); Sodium 139 mmol/L (135-145); Total Protein 7.6 g/dL (6.4-8.9)
[2019-06-20] MEDS ORDERED: Iodixanol* (CONTRAST) 320 MG/ML 100 ML SDV IV ONE (13:33)
--- NOTE | 2019-06-20 13:42 | ED ---
Abdominal Pain/Female - HPI Summary HPI Summary: Patient is a 58 y/o F presenting to [facility] with complaints of abdominal pain, N/V , and fever. She states that on 06/18/19 she was at work when abdominal pain onset. She characterizes the pain as a cramping sensation. She states that she is beyond menopause and had believed the pain was gas-related. She took some GasX but eventually began to vomit. Patient measured her temperature and reports the highest measurement was 100.[address] Anders's office, Dr. Anders's nurse advised her to go to urgent care or ED for evaluation. She was seen at pending sale to [facility] the evening of 06/19/19. Patient states that her fever had gone down by the time she went to urgent care but was still having abdominal pain at the time. Influenza swab done at the time was negative. Patient was advised to come to ED for evaluation. She decided to wait until this morning to come as she wanted to sleep in her own bed in the evening. Pain is less severe compared to initial onset. Last episode of emesis was two days ago. Patient has been experiencing more frequent BMs but denies diarrhea. Vaginal bleeding and discharge are denied. She states that she is pre-diabetic and has been taking metformin. 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 PSHx of myomectomy noted. She denies cigarette and substance usage but notes that she consumes alcohol 1-2 times monthly. Home medications and allergies are reviewed. Home Medications Medication Instructions Recorded Confirmed Type Valsartan/HCTZ 160/25(NF) [Diovan 1 tab PO DAILY 05/19/12 06/20/19 History Hct 160/25(NF)] Fluticasone-Salmeterol 100-50* 1 puff INH BID 10/19/16 06/20/19 History [Advair Diskus 100-50*] Sertraline* [Zoloft*] 150 mg PO DAILY 06/29/17 06/20/19 History Ascorbic Acid TAB* [Vitamin C 500 mg PO DAILY 06/20/19 06/20/19 History TAB*] Azelastine/Fluticasone JESSA(NF 1 spray BOTH NARES BID 06/20/19 06/20/19 History [Dymista(NF)] Naproxen TAB* [Naprosyn 250 mg 500 mg PO BID PRN 06/20/19 06/20/19 History TAB*] Vitamin B Complex TAB* [B 1 tab PO DAILY 06/20/19 06/20/19 History Complex-50*] metFORMIN* [Glucophage 500 MG TAB 500 mg PO DAILY 06/20/19 06/20/19 History *] - History of Current Complaint Chief Complaint: EDAbdPain Stated Complaint: ABD PAIN PER PT Time Seen by Provider: 06/20/19 13:14 Hx Obtained From: Patient Hx Last Menstrual Period: unknown Onset/Duration: Lasting Days, Still Present Timing: Days Severity Initially: Moderate Pain Intensity: 0 Pain Scale Used: 0-10 Numeric Associated Signs and Symptoms: Positive: Fever, Nausea, Vomiting, Other: - positive - increased frequency of BMs. Negative: Vaginal Bleeding, Vaginal Discharge, Diarrhea Allergies/Adverse Reactions: Allergies Allergy/AdvReac Type Severity Reaction Status Date / Time morphine Allergy Mild ithching Verified 06/20/19 10:58 environmental Allergy runny Uncoded 06/19/19 19:22 eyes, congestion, itchy eyes Home Medications: Home Medications Valsartan/HCTZ 160/25(NF) [Diovan Hct 160/25(NF)] 1 tab PO DAILY 05/19/12 [ History Confirmed 06/20/19] Fluticasone-Salmeterol 100-50* [Advair Diskus 100-50*] 1 puff INH BID 10/19/16 [ History Confirmed 06/20/19] Sertraline* [Zoloft*] 150 mg PO DAILY 06/29/17 [History Confirmed 06/20/19] Amoxicillin/Clavulanate TAB* [Augmentin TAB 875*] 875 mg PO BID 10 Days #20 tab 06/20/19 [Rx] Ascorbic Acid TAB* [Vitamin C TAB*] 500 mg PO DAILY 06/20/19 [History Confirmed 06/20/19] Azelastine/Fluticasone JESSA(NF [Dymista(NF)] 1 spray BOTH NARES BID 06/20/19 [ History Confirmed 06/20/19] Naproxen TAB* [Naprosyn 250 mg TAB*] 500 mg PO BID PRN 06/20/19 [History Confirmed 06/20/19] Vitamin B Complex TAB* [B Complex-50*] 1 tab PO DAILY 06/20/19 [History Confirmed 06/20/19] metFORMIN* [Glucophage 500 MG TAB *] 500 mg PO DAILY 06/20/19 [History Confirmed 06/20/19] PMH/Surg Hx/FS Hx/Imm Hx Endocrine/Hematology History: Reports: Hx Diabetes - type 2, Hx Anemia - past Cardiovascular History: Reports: Hx Hypertension - on meds Denies: Hx Pacemaker/ICD, Other Cardiovascular Problems/Disorders Respiratory History: Reports: Hx Asthma Denies: Other Respiratory Problems/Disorders GI History: Denies: Other GI Disorders History: Reports: Hx Kidney Stones - 30 years ago Denies: Hx Dialysis, Hx Renal Disease Musculoskeletal History: Reports: Hx Arthritis - right hip, wrists, ag knees, Hx Bursitis - right hip Denies: Other Musculoskeletal History Sensory History: Reports: Hx Contacts or Glasses - glasses Denies: Hx Hearing Aid Opthamlomology History: Reports: Hx Contacts or Glasses - glasses Neurological History: Denies: Other Neuro Impairments/Disorders Psychiatric History: Reports: Hx Depression - on meds Denies: Hx Panic Disorder - Cancer History Hx Chemotherapy: No Hx Radiation Therapy: No - Surgical History Surgery Procedure, Year, and Place: bi-lateral rentina laser surgery 2000, ( PT DENIES ANY IMPLANTS). myomectomy 2000,. D&C [id number] Hx Anesthesia Reactions: No Infectious Disease History: No Infectious Disease History: Denies: Traveled Outside the [place] in Last 30 Days - Family History Known Family History: Positive: Diabetes - mothe, Other - CVA; both parents have dementia - Social History Alcohol Use: Occasionally Alcohol Amount: `new years Substance Use Type: Reports: None Hx Tobacco Use: No Smoking Status (MU): Never Smoked Tobacco Have You Smoked in the Last Year: No Review of Systems Positive: Fever Gastrointestinal: Other - positive - increased frequency of BMs Positive: Abdominal Pain, Vomiting, Nausea. Negative: Diarrhea Genitourinary: Other - negative - vaginal bleeding and discharge All Other Systems Reviewed And Are Negative: Yes Physical Exam - Summary Physical Exam Summary: Constitutional: Well-developed, Well-nourished, Alert. (-) Distressed Skin: Warm, Dry HENT: Normocephalic; Atraumatic Eyes: Conjunctiva normal Neck: Musculoskeletal ROM normal neck. (-) JVD, (-) Stridor, (-) Tracheal deviation Cardio: Rhythm regular, rate normal, Heart sounds normal; Intact distal pulses; Radial pulses are 2+ and symmetric. (-) Murmur Pulmonary/Chest wall: Effort normal. (-) Respiratory distress, (-) Wheezes, (-) Rales Abd: Soft, (-) tenderness, (-) Distension, (-) Guarding, (-) Rebound Musculoskeletal: (-) Edema Lymph: (-) Cervical adenopathy Neuro: Alert, Oriented x3 Psych: Mood and affect Normal Triage Information Reviewed: Yes Vital Signs On Initial Exam: Initial Vitals Temp Pulse Resp BP Pulse Ox 98.3 F 87 18 116/69 96 06/20/19 10:54 06/20/19 10:54 06/20/19 10:54 06/20/19 10:54 06/20/19 10:54 Vital Signs Reviewed: Yes Procedures - Sedation Patient Received Moderate/Deep Sedation with Procedure: No Diagnostics - Vital Signs Vital Signs Temp Pulse Resp BP Pulse Ox 06/20/19 12:52 97.7 F 99 22 138/88 98 06/20/19 10:54 98.3 F 87 18 116/69 96 - Laboratory Lab Results: Lab Results 06/20/19 06/20/19 Range/Units 12:22 12:22 WBC 8.2 (3.5-10.8) 10^3/uL RBC 4.41 (3.70-4.87) 10^6 /uL Hgb 10.8 L (12.0-16.0) g/dL Hct 33 L (35-47) % MCV 75 L (80-97) fL MCH 25 L (27-31) pg MCHC 33 (31-36) g/dL RDW 19 H (10-15) % Plt Count 186 (150-450) 10^3/uL MPV 9.2 (7.4-10.4) fL Neut % (Auto) 76.0 % Lymph % (Auto) 16.5 % Caroline % (Auto) 6.4 % Eos % (Auto) 0.2 % Baso % (Auto) 0.9 % Absolute Neuts (auto) 6.2 (1.5-7.7) 10^3/ul Absolute Lymphs (auto) 1.3 (1.0-4.8) 10^3/ul Absolute Monos (auto) 0.5 (0-0.8) 10^3/ul Absolute Eos (auto) 0.0 (0-0.6) 10^3/ul Absolute Basos (auto) 0.1 (0-0.2) 10^3/ul Absolute Nucleated RBC 0.0 10^3/ul Nucleated RBC % 0.1 Sodium 139 (135-145) mmol/L Potassium 3.9 (3.5-5.0) mmol/L Chloride 102 (101-111) mmol/L Carbon Dioxide 30 (22-32) mmol/L Anion Gap 7 (2-11) mmol/L BUN 16 (6-24) mg/dL Creatinine 0.77 (0.51-0.95) mg/dL Est GFR ( Amer) 92.5 (>60) Est GFR (Non-Af Amer) 76.5 (>60) BUN/Creatinine Ratio 20.8 H (8-20) Glucose 112 H (70-100) mg/dL Calcium 9.5 (8.6-10.3) mg/dL Total Bilirubin 0.50 (0.2-1.0) mg/dL AST 15 (13-39) U/L ALT 13 (7-52) U/L Alkaline Phosphatase 83 (34-104) U/L Total Protein 7.6 (6.4-8.9) g/dL Albumin 4.1 (3.2-5.2) g/dL Globulin 3.5 (2-4) g/dL Albumin/Globulin Ratio 1.2 (1-3) Lipase < 10 L (11.0-82.0) U/L Result Diagrams: 06/20/19 12:22 06/20/19 12:22 Lab Statement: Any lab studies that have been ordered have been reviewed, and results considered in the medical decision making process. - CT CT ABD/PEL CT Interpretation Completed By: Radiologist Summary of CT Findings: IMPRESSION: 1. UNCOMPLICATED DIVERTICULITIS OF THE DISTAL DESCENDING AND SIGMOIDAL COLON IS LIKELY. SHORT-TERM FOLLOW-UP IMAGING IS RECOMMENDED TO DOCUMENT RESOLUTION OF THESE IMAGING. FINDINGS. THIS REPORT WAS REVIEWED BY ED PHYSICIAN. Abdominal Pain Fem Course/Dx - Course Course Of Treatment: Patient is here with left lower quadrant pain, vomiting, fever. Patient is overall feeling better but does have point tenderness or left lower quadrant. Patient had blood work performed which was grossly unremarkable. Patient had a CT scan which showed uncomplicated diverticulitis. Patient started on Augmentin - Diagnoses Provider Diagnoses: Diverticulitis, LLQ pain Discharge ED - Sign-Out/Discharge Documenting (check all that apply): Patient Departure - discharge - Discharge Plan Condition: Stable Disposition: HOME Prescriptions: Amoxicillin/Clavulanate TAB* [Augmentin TAB 875*] 875 mg PO BID 10 Days #20 tab Patient Education Materials: Diverticulitis (ED) Referrals: Bella Anders MD [Primary Care Provider] - Additional Instructions: Please take your antibiotics as prescribed Please follow up with your primary care doctor in 1-3 days Please return to the emergency department if you have worsening fever, worsening pain, large quantity of blood in your stool, any other concerning symptoms - Billing Disposition and Condition Condition: STABLE Disposition: Home - Attestation Statements Document Initiated by Manuel: Yes Documenting Scribe: ZOË DIANE Provider For Whom Manuel is Documenting (Include Credential): PAUL GASPAR MD Scribe Attestation: ZOË Cisneros scribed for PAUL GASPAR MD on 06/20/19 at 1635. Scribe Documentation Reviewed: Yes Provider Attestation: The documentation as recorded by the ZOË [employer]ccloud accurately reflects the service I personally performed and the decisions made by , PAUL GASPAR MD Status of Scribe Document: Viewed
[2019-06-20 14:33] LABS: Urine Appearance Cloudy; Urine Bilirubin Negative (Negative); Urine Blood Negative (Negative); Urine Color Yellow; Urine Glucose Negative (Negative); Urine Ketones Negative (Negative); Urine Nitrite Negative (Negative); Urine Protein Negative (Negative); Urine Specific Gravity 1.013 (1.010-1.030); Urine Urobilinogen Negative (Negative)
[2019-06-20 15:57] VITALS: BP 111/77
== END 2019-06-20 15:55 | disposition home or self-care (01) ==
LOC: ED 10:52
DX: K57.32 Diverticulitis of large intestine without perforation or abscess without bleeding (principal); E11.9 Type 2 diabetes mellitus without complications; D64.9 Anemia, unspecified; I10 Essential (primary) hypertension; J45.909 Unspecified asthma, uncomplicated; F32.9 Major depressive disorder, single episode, unspecified; Z79.84 Long term (current) use of oral hypoglycemic drugs; Z79.899 Other long term (current) drug therapy; Z88.5 Allergy status to narcotic agent
CPT/HCPCS: 36415; 74177; 80053; 81003; 83690; 85025; 99283; Q9967